=== PATIENT | male | born 1950 | race Caucasian/White ===

== ENCOUNTER 2017-03-15 08:16 | Outpatient (CLI) | payer MEDICARE, BC ==
[2017-03-15 09:21] LABS: ALT (SGPT) 29 U/L (0-55); AST (SGOT) 26 U/L (5-34); Albumin 3.8 g/dL (3.4-4.8); Alkaline Phosphatase 99 U/L (40-150); Anion Gap 11 mmol/L (10-20); BUN (Urea Nitrogen) 17 mg/dL (8.4-25.7); Calc. Creatinine Clearance 0 mL/min (70-130); Calcium 8.7 mg/dL (7.8-10.44); Carbon Dioxide 25 mmol/L (23-31); Cardiac Risk 3.9 (Less than 4.5); Chloride 112 mmol/L (98-107); Cholesterol 137 mg/dL (< 200 Desired); Estimated GFR-MDRD 84; Globulin 2.5 g/dL (2.4-3.5); Glucose 104 mg/dL (80-115); HDL Cholesterol 35 mg/dL (>60 Neg Risk); LDL Cholesterol, Calculated 79 mg/dL; Potassium 4.6 mmol/L (3.5-5.1); Protein, Total 6.3 g/dL (5.8-8.1); Sodium 143 mmol/L (136-145); Triglycerides 116 mg/dL (Less than 150)
[2017-03-15 09:23] LABS: #Basophils 0.1 thou/uL (0.0-0.2); #Eosinphils 0.3 thou/uL (0.0-0.7); #Lymphocytes 1.8 thou/uL (1.20-3.40); #Monocytes 0.8 thou/uL (0.11-0.59); #Neutrophils 5.3 thou/uL (1.40-6.50); %Basophils 1.4 % (0.0-1.0); %Eosinophils 3.9 % (0.0-10.0); %Lymphocytes 21.7 % (21.0-51.0); %Monocytes 9.9 % (0.0-10.0); %Neutrophils 63.1 % (42.0-75.0); Hemoglobin 14.6 g/dL (14.0-18.0); Mean Corpuscular HGB CONC 34.6 g/dL (32.0-36.0); Mean Corpuscular Volume 92.4 fl (80.0-94.0); Mean Platelet Volume 10.4 fL (7.4-10.4); Platelet Count 107 thou/uL (130-400); RBC Distribution Width 12.2 % (11.5-14.5); Red Blood Cell (RBC) Count 4.55 mill/uL (4.70-6.10); White Blood Cell (WBC) Count 8.4 thou/uL (4.8-10.8)
== END 2017-03-15 08:17 | disposition home or self-care (01) ==
LOC: BURLAB 08:16
PROVIDERS: ATTEND Family Medicine
DX: I25.10 Atherosclerotic heart disease of native coronary artery without angina pectoris (principal); D64.9 Anemia, unspecified; I10 Essential (primary) hypertension
CPT/HCPCS: 36415; 80053; 80061; 85025

== ENCOUNTER 2017-06-01 09:48 | Outpatient (CLI) | payer MEDICARE, BC ==
[2017-06-01 16:51] LABS: #Basophils 0.2 thou/uL (0.0-0.2); #Eosinphils 0.4 thou/uL (0.0-0.7); #Lymphocytes 1.6 thou/uL (1.20-3.40); #Monocytes 0.7 thou/uL (0.11-0.59); #Neutrophils 4.1 thou/uL (1.40-6.50); %Basophils 2.3 % (0.0-1.0); %Eosinophils 5.5 % (0.0-10.0); %Lymphocytes 23.1 % (21.0-51.0); %Monocytes 10.5 % (0.0-10.0); %Neutrophils 58.6 % (42.0-75.0); Hemoglobin 13.6 g/dL (14.0-18.0); Mean Corpuscular HGB CONC 35.7 g/dL (32.0-36.0); Mean Corpuscular Hemoglobin 32.6 pg (27.0-31.0); Mean Corpuscular Volume 91.5 fl (80.0-94.0); Mean Platelet Volume 9.9 fL (7.4-10.4); PLT Morphology Comment HX OF LOW PLATELET COUNT; Platelet Count 103 thou/uL (130-400); RBC Distribution Width 12.5 % (11.5-14.5); Red Blood Cell (RBC) Count 4.15 mill/uL (4.70-6.10); White Blood Cell (WBC) Count 6.9 thou/uL (4.8-10.8)
[2017-06-01 17:20] LABS: PSA-Asymptomatic (SCREENING) 0.24 ng/mL (0-4.0)
[2017-06-01 17:44] LABS: MDiff Complete? YES; Manual Diff?? NO
[2017-06-01 17:58] LABS: Hep C IgG Ab Non-Reactive (NonReactive); Hep C Index 0.14 S/CO (0-0.79)
== END 2017-06-01 09:49 | disposition home or self-care (01) ==
LOC: LABLEX 09:48
PROVIDERS: ATTEND Family Medicine
DX: Z12.5 Encounter for screening for malignant neoplasm of prostate (principal); D69.6 Thrombocytopenia, unspecified; Z72.89 Other problems related to lifestyle
CPT/HCPCS: 85025; 86803; G0103

== ENCOUNTER 2017-07-10 10:11 | Emergency (ER) | payer MEDICARE, BC ==
[2017-07-10 10:52] LABS: Anion Gap 15 mmol/L (10-20); BUN (Urea Nitrogen) 18 mg/dL (8.4-25.7); Calc. Creatinine Clearance 0 mL/min (70-130); Calcium 8.9 mg/dL (7.8-10.44); Carbon Dioxide 22 mmol/L (23-31); Chloride 107 mmol/L (98-107); Estimated GFR-MDRD 90; Glucose 105 mg/dL (80-115); Potassium 4.6 mmol/L (3.5-5.1); Sodium 139 mmol/L (136-145); Uric Acid 8.9 mg/dL (3.5-7.2)
[2017-07-10 10:57] LABS: #Basophils 0.2 thou/uL (0.0-0.2); #Eosinphils 0.4 thou/uL (0.0-0.7); #Lymphocytes 1.7 thou/uL (1.20-3.40); #Monocytes 0.9 thou/uL (0.11-0.59); #Neutrophils 5.2 thou/uL (1.40-6.50); %Basophils 2.1 % (0.0-1.0); %Eosinophils 4.5 % (0.0-10.0); %Lymphocytes 20.4 % (21.0-51.0); %Monocytes 10.3 % (0.0-10.0); %Neutrophils 62.8 % (42.0-75.0); Hemoglobin 14.5 g/dL (14.0-18.0); Mean Corpuscular HGB CONC 35.9 g/dL (32.0-36.0); Mean Corpuscular Hemoglobin 32.2 pg (27.0-31.0); Mean Corpuscular Volume 89.6 fl (80.0-94.0); Mean Platelet Volume 9.3 fL (7.4-10.4); PLT Morphology Comment BLOOD SMEAR ESTIMATE CONFIRMS LOW PLATELET COUNT; Platelet Count 119 thou/uL (130-400); RBC Distribution Width 12.1 % (11.5-14.5); Red Blood Cell (RBC) Count 4.51 mill/uL (4.70-6.10); White Blood Cell (WBC) Count 8.3 thou/uL (4.8-10.8)
[2017-07-10 11:00] LABS: MDiff Complete? YES
--- NOTE | 2017-07-10 11:08 | RAD ---
RIGHT ANKLE 3 VIEWS: HISTORY: Right ankle pain. FINDINGS/IMPRESSION: No fracture, dislocation, or bony destruction is seen. The ankle mortise is maintained. There are calcaneal spurs. POS: TONY
[2017-07-10] MEDS ORDERED: traMADol HCl 50 MG TAB ONE (11:28)
== END 2017-07-10 11:35 | disposition home or self-care (01) ==
LOC: BURERS 10:11
DX: M10.9 Gout, unspecified (principal); I11.0 Hypertensive heart disease with heart failure; I50.9 Heart failure, unspecified; E78.5 Hyperlipidemia, unspecified; Z87.891 Personal history of nicotine dependence
CPT/HCPCS: 80048; 84550; 85025

== ENCOUNTER 2017-07-17 17:28 | Emergency (ER) | payer MEDICARE, BC ==
[2017-07-17] MEDS ORDERED: Adacel (T-DAP) 0.5 ML VIAL ONE (19:12)
[2017-07-17] MEDS ORDERED: Cephalexin 250 MG CAP ONE (20:29)
== END 2017-07-17 20:30 | disposition home or self-care (01) ==
LOC: BURERS 17:28
DX: L02.414 Cutaneous abscess of left upper limb (principal); I11.0 Hypertensive heart disease with heart failure; I50.9 Heart failure, unspecified; E78.5 Hyperlipidemia, unspecified; Z87.891 Personal history of nicotine dependence; Z79.82 Long term (current) use of aspirin; Z79.899 Other long term (current) drug therapy
CPT/HCPCS: 10060; 90471; 90715

== ENCOUNTER 2017-07-19 09:59 | Inpatient (IN) | payer MEDICARE, BC ==
[2017-07-19 10:46] LABS: #Basophils 0.1 thou/uL (0.0-0.2); #Eosinphils 0.2 thou/uL (0.0-0.7); #Lymphocytes 0.9 thou/uL (1.20-3.40); #Neutrophils 5.7 thou/uL (1.40-6.50); %Basophils 1.1 % (0.0-1.0); %Eosinophils 2.1 % (0.0-10.0); %Lymphocytes 11.3 % (21.0-51.0); %Monocytes 12.3 % (0.0-10.0); %Neutrophils 73.2 % (42.0-75.0); Mean Corpuscular HGB CONC 35.1 g/dL (32.0-36.0); Mean Corpuscular Hemoglobin 32.3 pg (27.0-31.0); Mean Corpuscular Volume 91.9 fl (80.0-94.0); Mean Platelet Volume 9.6 fL (7.4-10.4); Platelet Count 120 thou/uL (130-400); RBC Distribution Width 11.6 % (11.5-14.5); Red Blood Cell (RBC) Count 4.32 mill/uL (4.70-6.10); White Blood Cell (WBC) Count 7.7 thou/uL (4.8-10.8)
[2017-07-19] MEDS ORDERED: Piperacillin/Tazobactam 3.375 GM VIAL ONE (11:30)
[2017-07-19] MEDS ORDERED: Sodium Chloride 0.9% 100 ML ONE (11:30)
[2017-07-19 11:48] LABS: ALT (SGPT) 22 U/L (8-55); AST (SGOT) 24 U/L (5-34); Albumin 3.5 g/dL (3.4-4.8); Alkaline Phosphatase 99 U/L (40-150); Anion Gap 16 mmol/L (10-20); BUN (Urea Nitrogen) 18 mg/dL (8.4-25.7); Bilirubin, Total 0.5 mg/dL (0.2-1.2); Calc. Creatinine Clearance 0 mL/min (70-130); Calcium 8.6 mg/dL (7.8-10.44); Carbon Dioxide 19 mmol/L (23-31); Chloride 103 mmol/L (98-107); Estimated GFR-MDRD 90; Globulin 3.2 g/dL (2.4-3.5); Glucose 105 mg/dL (80-115); Potassium 4.4 mmol/L (3.5-5.1); Protein, Total 6.7 g/dL (5.8-8.1); Sodium 134 mmol/L (136-145)
[2017-07-19 12:43] LABS: Bilirubin Negative (Negative); Blood, Urine Negative (Negative); Clarity Clear (Clear); Glucose, Urine (Dipstick) Negative (Negative); Leukocyte Negative (Negative); Nitrite Negative (Negative); Protein, Urine (Dipstick) Negative (Neg-Trace)
[2017-07-19 14:21] VITALS: BMI 35.5
[2017-07-19] MEDS ORDERED: Acetaminophen 325 MG TAB PO PRN (14:42)
[2017-07-19] MEDS ORDERED: Ondansetron ODT 4 MG TAB SL PRN (14:42)
[2017-07-19] MEDS ORDERED: Ondansetron HCl/PF 4 MG/2 ML Vial IVP PRN (14:42)
[2017-07-19] MEDS: Vancomycin HCl 1 GM in Sodium Chloride 0.9% 250 ML 250 ML IVPB SCH (15:09)
[2017-07-19] MEDS ORDERED: traMADol HCl 50 MG TAB PO PRN (17:11)
[2017-07-19] MEDS: Enoxaparin Sodium 30 MG/0.3 ML SYRINGE SC SCH (17:54)
[2017-07-19] MEDS: Piperacillin/Tazobactam 3.375 GM in Sodium Chloride 0.9% 100 ML IVPB SCH (20:15)
[2017-07-19] MEDS: Famotidine 20 MG TAB PO SCH (20:16)
[2017-07-19] MEDS: Aspirin 325 MG TAB PO SCH (20:16)
[2017-07-19] MEDS: Atorvastatin Calcium 40 MG TAB PO SCH (20:16)
--- NOTE | 2017-07-19 20:57 | RAD ---
CHEST TWO VIEWS 07/19/17 Comparison is made with a 04/14/16 study. Median sternotomy sutures are seen as before. The heart is normal in size and the lungs are clear. T here is no current sign of pneumonia or pleural effusion. The trachea is midline. IMPRESSION: No acute thoracic findings. POS: HOME
[2017-07-19] MEDS: Acetaminophen 325 MG TAB PO SCH (21:51)
--- NOTE | 2017-07-19 23:37 | HP ---
DATE OF ADMISSION: 07/19/2017 CHIEF COMPLAINT: Left hand cellulitis. HISTORY OF PRESENT ILLNESS: A 67-year-old male patient of Dr. Cody presented to the [facility] earlier today with worsening symptoms to a distal left upper extremity including swelling and erythema with accompanying nausea, vomiting. He had been seen 2 days prior for incision and drainage of suspected and infected sebaceous cyst and sent home with a course of Keflex. The patient states he initially felt better the next day; however, later that evening began to experience subjective warmth accompanied with nausea , which progressed during the night to an episode of emesis. When awakening earlier today, he noticed that his swelling had progressed along with erythema extending from the site of infection and to now include his left hand. He thus presented to [facility], where he was evaluated further, and deemed to have failed outpatient antibiotics and was subsequently started on IV antibiotics including vancomycin and Zosyn. He was provided some intravenous fluids due to limited intake over the last half to full day. Labs are otherwise fairly stable. No leukocytosis and stable metabolic profile; however , as stated he will be admitted for further IV antibiotic therapy and followup of his obtained cultures. PAST MEDICAL HISTORY: Includes hypertension, hyperlipidemia, coronary artery disease, and congestive heart failure. PAST SURGICAL HISTORY: Cholecystectomy, lumbar spinal surgery, and bypass 1 vessel. SOCIAL HISTORY: Nonsmoker, nondrinker. . FAMILY HISTORY: Noncontributory. ALLERGIES: No known drug allergies. CURRENT MEDICATIONS: Ascorbic acid 1000 mg p.o. daily, Coreg 6.25 mg p.o. b.i.d., docusate sodium 100 mg p.o. daily p.r.n., daily multivitamin, B complex vitamin 150 mg p.o. daily, aspirin 325 mg p.o. b.i.d., atorvastatin 80 mg p.o. at bedtime, lisinopril 5 mg p.o. daily, diclofenac, and tramadol 50 mg p.o. p.r.n. REVIEW OF SYSTEMS: General: The patient complains of subjective warmth and chills. Ear, Nose, and Throat: Denies sore throat, nasal drainage or congestion. Cardiovascular: Denies chest pain or palpitations. Respiratory: Denies shortness of breath or cough. Gastrointestinal: Complains of nausea and vomiting. Denies diarrhea or constipation. Denies abdominal pain. Genitourinary: Denies dysuria. Musculoskeletal: He complains of swelling over his left hand. Dermatologic: Complains of redness, erythema to the distal left upper extremity. Neurologic: Denies headache. LABORATORY DATA: White blood cell count 7.7, H and H is 14 and 39.8, platelets are 120. Chemistry: Sodium is 134, potassium is 4.4. BUN 18, creatinine 0.85 , GFR is 90, lactic acid 0.9. LFTs are normal. Urinalysis showed no bacteria. Chest x-ray was obtained and has no pressure read at that time. PHYSICAL EXAMINATION: VITAL SIGNS: Temperature is 98.2, pulse is 72, respiratory rate is 16, oxygen is 97% on room air, blood pressure is 143/63. GENERAL: Alert and oriented, in no acute distress. He is overweight. HEAD, EARS, NOSE, AND THROAT: Pupils are equal, round, reactive. Extraocular muscles are intact. Throat, no erythema. Moist mucous membranes. NECK: Supple, no lymphadenopathy, no meningeal signs. LUNGS: Clear to auscultation bilaterally. No wheezing, rales or rhonchi. CARDIOVASCULAR: Normal S1, S2. A 2/6 murmur, regular rate and rhythm. ABDOMEN: Soft, nontender to palpation. No rebound or guarding, normal bowel sounds. EXTREMITIES: No clubbing or cyanosis. Trace edema. SKIN: He has approximately 1 x 1 cm open lesions to the distal dorsolateral left forearm with surrounding erythema, there is swelling of the left hand with faint erythema dorsally. NEUROLOGICAL: Nonfocal. Cranial nerves II through XII are grossly intact. ASSESSMENT AND PLAN: 1. Left hand cellulitis, with suspected and infected sebaceous cyst. We will continue vancomycin and Zosyn with vancomycin to be followed as far as trough and peak per protocol. We will follow up CBC and CMP in the morning. There are blood cultures obtained that will be followed up and Tylenol for fever p.r.n. 2. Nausea, vomiting. Zofran p.r.n. He has been on a clear liquid diet thus far and we will advance to heart healthy diet as tolerated. 3. Hypertension. The patient is hemodynamically stable. Blood pressure at goal, we will continue his home medications. 4. Hyperlipidemia. We will continue home statin. 5. Coronary artery disease. Again, we will resume his home medications. 6. Prophylaxis. We will provide Lovenox and H2 anthony MTDD
[2017-07-20] MEDS: Vancomycin HCl 1 GM in Sodium Chloride 0.9% 250 ML 250 ML IVPB SCH ×2 (02:21→15:24)
[2017-07-20] MEDS: Piperacillin/Tazobactam 3.375 GM in Sodium Chloride 0.9% 100 ML IVPB SCH ×3 (04:14→20:51)
[2017-07-20 06:56] LABS: ALT (SGPT) 27 U/L (8-55); AST (SGOT) 24 U/L (5-34); Albumin 3.2 g/dL (3.4-4.8); Alkaline Phosphatase 80 U/L (40-150); Anion Gap 14 mmol/L (10-20); BUN (Urea Nitrogen) 12 mg/dL (8.4-25.7); Bilirubin, Total 1.5 mg/dL (0.2-1.2); Calc. Creatinine Clearance 132 mL/min (70-130); Calcium 8.5 mg/dL (7.8-10.44); Carbon Dioxide 22 mmol/L (23-31); Chloride 107 mmol/L (98-107); Estimated GFR-MDRD Greater than 90; Globulin 2.9 g/dL (2.4-3.5); Glucose 94 mg/dL (80-115); Potassium 4.4 mmol/L (3.5-5.1); Protein, Total 6.1 g/dL (5.8-8.1); Sodium 139 mmol/L (136-145)
[2017-07-20 08:01] LABS: Hemoglobin 13.3 g/dL (14.0-18.0); Mean Corpuscular HGB CONC 34.8 g/dL (32.0-36.0); Mean Corpuscular Hemoglobin 32.2 pg (27.0-31.0); Mean Corpuscular Volume 92.4 fl (80.0-94.0); Mean Platelet Volume 9.1 fL (7.4-10.4); Platelet Count 111 thou/uL (130-400); RBC Distribution Width 11.6 % (11.5-14.5); Red Blood Cell (RBC) Count 4.13 mill/uL (4.70-6.10); White Blood Cell (WBC) Count 7.8 thou/uL (4.8-10.8)
[2017-07-20] MEDS: Aspirin 325 MG TAB PO SCH ×2 (08:52→20:55)
[2017-07-20] MEDS: Multivitamin W/ Minerals 1 TAB PO SCH (08:53)
[2017-07-20] MEDS: Ascorbic Acid 500 mg Chewable Tablet PO SCH (08:53)
[2017-07-20] MEDS: Acetaminophen 325 MG TAB PO SCH ×2 (08:53→20:55)
[2017-07-20] MEDS: Carvedilol 3.125 MG TAB PO SCH ×2 (08:53→18:03)
[2017-07-20] MEDS: Fish Oil 1,000 MG CAP PO SCH ×2 (08:53→20:55)
[2017-07-20] MEDS: Lisinopril 5 MG TAB PO SCH (08:54)
[2017-07-20] MEDS: Famotidine 20 MG TAB PO SCH ×2 (08:54→20:56)
[2017-07-20] MEDS: Docusate 100 MG CAP PO SCH (08:54)
[2017-07-20] MEDS: Stress 600 With Zinc 1 TAB PO SCH (08:54)
[2017-07-20 09:54] LABS: Band 1 % (5-11); Eosinophils 3 % (0-10); Lymphocytes 19 % (21-51); Monocytes 10 % (0-10); Neutrophil 67 % (42-75)
[2017-07-20 10:04] LABS: MDiff Complete? YES
[2017-07-20] MEDS: Enoxaparin Sodium 30 MG/0.3 ML SYRINGE SC SCH (18:04)
[2017-07-20] MEDS: Atorvastatin Calcium 40 MG TAB PO SCH (20:55)
[2017-07-21] MEDS: Vancomycin HCl 1 GM in Sodium Chloride 0.9% 250 ML 250 ML IVPB SCH (02:57)
[2017-07-21] MEDS: Piperacillin/Tazobactam 3.375 GM in Sodium Chloride 0.9% 100 ML IVPB SCH ×3 (03:58→20:32)
[2017-07-21] MEDS: Stress 600 With Zinc 1 TAB PO SCH (08:52)
[2017-07-21] MEDS: Aspirin 325 MG TAB PO SCH ×2 (08:52→21:45)
[2017-07-21] MEDS: Carvedilol 3.125 MG TAB PO SCH ×2 (08:52→18:26)
[2017-07-21] MEDS: Fish Oil 1,000 MG CAP PO SCH ×2 (08:53→21:44)
[2017-07-21] MEDS: Ascorbic Acid 500 mg Chewable Tablet PO SCH (08:53)
[2017-07-21] MEDS: Lisinopril 5 MG TAB PO SCH (08:53)
[2017-07-21] MEDS: Multivitamin W/ Minerals 1 TAB PO SCH (08:57)
[2017-07-21] MEDS: Acetaminophen 325 MG TAB PO SCH ×2 (08:57→21:44)
[2017-07-21] MEDS: Docusate 100 MG CAP PO SCH (08:57)
[2017-07-21] MEDS: Famotidine 20 MG TAB PO SCH ×2 (08:59→21:45)
[2017-07-21] MEDS ORDERED: Vancomycin HCl 1.5 GM in Sodium Chloride 0.9% 250 ML 250 ML IVPB SCH (15:00)
[2017-07-21] MEDS: Enoxaparin Sodium 30 MG/0.3 ML SYRINGE SC SCH (18:26)
[2017-07-21] MEDS: Atorvastatin Calcium 40 MG TAB PO SCH (21:44)
[2017-07-22] MEDS ORDERED: Vancomycin HCl 500 MG in Sodium Chloride 0.9% 100 ML IVPB SCH (03:00)
[2017-07-22] MEDS ORDERED: Vancomycin HCl 1 GM in Sodium Chloride 0.9% 250 ML 250 ML IVPB SCH (03:00)
[2017-07-22] MEDS ORDERED: Vancomycin HCl 500 MG VIAL ONE (04:06)
[2017-07-22] MEDS ORDERED: Piperacillin/Tazobactam 3.375 GM in Sodium Chloride 0.9% 100 ML IVPB SCH (06:00)
[2017-07-22 06:18] VITALS: TEMP 98.2
[2017-07-22] MEDS: Carvedilol 3.125 MG TAB PO SCH (09:05)
[2017-07-22] MEDS: Ascorbic Acid 500 mg Chewable Tablet PO SCH (09:06)
[2017-07-22] MEDS: Acetaminophen 325 MG TAB PO SCH (09:06)
[2017-07-22] MEDS: Multivitamin W/ Minerals 1 TAB PO SCH (09:07)
[2017-07-22] MEDS: Lisinopril 5 MG TAB PO SCH (09:07)
[2017-07-22] MEDS: Aspirin 325 MG TAB PO SCH (09:07)
[2017-07-22] MEDS: Stress 600 With Zinc 1 TAB PO SCH (09:08)
[2017-07-22] MEDS: Docusate 100 MG CAP PO SCH (09:08)
[2017-07-22] MEDS: Famotidine 20 MG TAB PO SCH (09:08)
[2017-07-22] MEDS: Fish Oil 1,000 MG CAP PO SCH (09:08)
[2017-07-22 12:09] VITALS: BP 148/65
[2017-07-22] MEDS ORDERED: Vancomycin HCl 750 MG in Sodium Chloride 0.9% 250 ML 250 ML IVPB SCH ×4 (15:00)
--- NOTE | 2017-07-22 18:05 | DIS ---
DATE OF ADMISSION: 07/19/2017 DATE OF DISCHARGE: 07/22/2017 ADMISSION DIAGNOSES: Cellulitis of the left hand, infected sebaceous cyst, nausea, vomiting, hypertension, hyperlipidemia, coronary artery disease. DISCHARGE DIAGNOSES: Cellulitis of the left hand, infected sebaceous cyst, hypertension, hyperlipidemia, coronary artery disease with resolution of the nausea and vomiting and noted improvement of cellulitis. PROCEDURES: None. HOSPITAL COURSE: A 67-year-old male presented to [facility] , status post failed outpatient antibiotic therapy with Keflex for a suspected infected sebaceous cyst to the distal dorsal left forearm that progressed into a cellulitis involving the left hand; he had a notable incision and drainage of this area a couple days prior to his admission. The patient was admitted for IV antibiotic therapy, which included vancomycin and Zosyn, and cultures were obtained. Blood cultures showed no growth and a wound culture did end up growing methicillin-resistant Staph aureus. His cellulitis is cleared from the left hand with the aforementioned IV antibiotics; however, he does have a remaining ulcerative lesion site to the left forearm; however, this area has steadily improved during his admission. The wound still has purulence draining from it; however, the erythema surrounding it has largely subsided. The patient 's nausea and vomiting resolved and his intake improved to his baseline. His mild hyponatremia corrected in accordance with this. Throughout his stay, he had no leukocytosis. He did spike a fever early in his admission; however, has remained afebrile for the last 48 hours and notably feels much improved. He will be discharged at this time to his home setting and treated in accordance with the wound culture with a 1-week course of Levaquin. DISPOSITION: The patient will be discharged home and may follow up with myself in clinic within a week. He is normally a patient of Dr. Jean, who has recently relocated, so he can certainly follow up with replacement there, who is Physician [employer] Matt if need be. DISCHARGE MEDICATIONS: One new medication include Levaquin 500 mg p.o. daily x7 days, can resume his usual medications which include ascorbic acid 1000 mg p.o. daily, Coreg 6.25 mg p.o. b.i.d., docusate sodium 100 mg p.o. daily p.r.n. , multivitamin, B complex vitamin 150 mg p.o. daily, aspirin 325 mg p.o., atorvastatin 80 mg p.o. at bedtime, lisinopril 5 mg p.o. daily, diclofenac p.r.n., tramadol 50 mg p.o. p.r.n. MTDD
== END 2017-07-22 10:08 | disposition home or self-care (01) | DRG 603 ==
LOC: BURERS 09:59 → BURMED 13:35
PROVIDERS: ADMIT Family Medicine; ATTEND Family Medicine
DX: L03.114 Cellulitis of left upper limb (principal); E87.1 Hypo-osmolality and hyponatremia; I10 Essential (primary) hypertension; L72.3 Sebaceous cyst; R11.2 Nausea with vomiting, unspecified; E78.5 Hyperlipidemia, unspecified; I25.10 Atherosclerotic heart disease of native coronary artery without angina pectoris; B95.62 Methicillin resistant Staphylococcus aureus infection as the cause of diseases classified elsewhere
CPT/HCPCS: 10060; 36415; 71020; 80053; 80202; 81003; 83605; 85025; 87040; 87070; 87077; 87186; 87205; 90471; 90715; 96361; 96365; A4216; J1650; J2543; J3370; J7050

== ENCOUNTER 2018-06-19 18:00 | Emergency (ER) | payer MEDICARE, BC ==
[2018-06-19 19:53] LABS: ALT (SGPT) 30 U/L (8-55); AST (SGOT) 24 U/L (5-34); Albumin 3.7 g/dL (3.4-4.8); Alkaline Phosphatase 86 U/L (40-150); Anion Gap 15 mmol/L (10-20); BUN (Urea Nitrogen) 13 mg/dL (8.4-25.7); Bilirubin, Total 2.4 mg/dL (0.2-1.2); Calc. Creatinine Clearance 0 mL/min (70-130); Calcium 9.3 mg/dL (7.8-10.44); Carbon Dioxide 22 mmol/L (23-31); Chloride 100 mmol/L (98-107); Estimated GFR-MDRD 79; Globulin 3.3 g/dL (2.4-3.5); Glucose 110 mg/dL (80-115); Potassium 4.4 mmol/L (3.5-5.1); Sodium 133 mmol/L (136-145)
[2018-06-19 19:54] LABS: CKMB 1.5 ng/mL (0-6.6); Troponin I 0.048 ng/mL (< 0.028)
[2018-06-19 19:56] LABS: #Basophils 0.1 thou/uL (0.0-0.2); #Eosinphils 0.2 thou/uL (0.0-0.7); #Lymphocytes 1.7 thou/uL (1.20-3.40); #Monocytes 1.6 thou/uL (0.11-0.59); #Neutrophils 11.9 thou/uL (1.40-6.50); %Basophils 0.8 % (0.0-1.0); %Eosinophils 1.1 % (0.0-10.0); %Lymphocytes 10.7 % (21.0-51.0); %Monocytes 10.4 % (0.0-10.0); Eosinophils 2 % (0-10); Hemoglobin 13.8 g/dL (14.0-18.0); Lymphocytes 5 % (21-51); MDiff Complete? YES; Mean Corpuscular Hemoglobin 30.3 pg (27.0-31.0); Mean Platelet Volume 8.3 fL (7.4-10.4); Monocytes 13 % (0-10); Neutrophil 77 % (42-75); Platelet Count 129 thou/uL (130-400); RBC Distribution Width 11.4 % (11.5-14.5); Reactive Lymphocytes 2 % (0-10); Red Blood Cell (RBC) Count 4.54 mill/uL (4.70-6.10); White Blood Cell (WBC) Count 15.4 thou/uL (4.8-10.8)
[2018-06-19 20:27] LABS: Bilirubin Negative (Negative); Blood, Urine Negative (Negative); Clarity Clear (Clear); Glucose, Urine (Dipstick) Negative (Negative); Leukocyte Negative (Negative); Nitrite Negative (Negative); Protein, Urine (Dipstick) Negative (Neg-Trace); Specific Gravity, Urine 1.015 (1.005-1.030); pH, Urine 6.5 (5.0-9.0)
--- NOTE | 2018-06-20 00:43 | RAD ---
AP PORTABLE CHEST: 06/19/2018 1915 HOURS COMPARISON: 07/19/2017 FINDINGS: The heart is borderline in size. There are no congestive findings, pleural effusions, or focal pulmo nary infiltrates. Indistinctness of the left heart border may be more due to the fact that the patie nt is turned slightly on this portable film. IMPRESSION: No definite acute finding. POS: HOME
== END 2018-06-19 21:03 | disposition short-term general hospital (02) ==
LOC: BURERS 18:00
DX: K52.9 Noninfective gastroenteritis and colitis, unspecified (principal); R79.89 Other specified abnormal findings of blood chemistry; I11.0 Hypertensive heart disease with heart failure; I50.9 Heart failure, unspecified; E78.5 Hyperlipidemia, unspecified; Z87.891 Personal history of nicotine dependence
CPT/HCPCS: 51701; 71045; 80053; 81003; 82553; 83605; 83690; 84484; 85025; 93005

== ENCOUNTER 2018-08-19 09:50 | Emergency (ER) | payer MEDICARE, BC ==
[2018-08-19] MEDS ORDERED: Triamcinolone 40 MG/ML VIAL ONE (10:14)
== END 2018-08-19 10:42 | disposition home or self-care (01) ==
LOC: BURERS 09:50
DX: M75.102 Unspecified rotator cuff tear or rupture of left shoulder, not specified as traumatic (principal); I11.0 Hypertensive heart disease with heart failure; I50.9 Heart failure, unspecified; E78.5 Hyperlipidemia, unspecified; Z87.891 Personal history of nicotine dependence; Z79.899 Other long term (current) drug therapy; Z79.82 Long term (current) use of aspirin
CPT/HCPCS: 20552; J3301

== ENCOUNTER 2019-02-08 09:49 | Emergency (ER) | payer MEDICARE, BC | END 2019-02-08 10:50 | disposition home or self-care (01) | LOC: BURERS 09:49 | DX: J10.1 Influenza due to other identified influenza virus with other respiratory manifestations (principal); I11.0 Hypertensive heart disease with heart failure; I50.9 Heart failure, unspecified; Z87.891 Personal history of nicotine dependence | CPT/HCPCS: 87804; 99283 ==

== ENCOUNTER 2019-04-30 02:36 | Emergency (ER) | payer MEDICARE, BC ==
[2019-04-30] MEDS ORDERED: Lidocaine 1% PF 5 ML VIAL ONE (02:56)
[2019-04-30] MEDS ORDERED: Ondansetron ODT 4 MG TAB ONE (02:56)
[2019-04-30 03:30] LABS: ALT (SGPT) 25 U/L (8-55); AST (SGOT) 25 U/L (5-34); Albumin 3.6 g/dL (3.4-4.8); Alkaline Phosphatase 87 U/L (40-150); Anion Gap 13 mmol/L (10-20); BUN (Urea Nitrogen) 16 mg/dL (8.4-25.7); Bilirubin, Total 1.5 mg/dL (0.2-1.2); Calc. Creatinine Clearance 0 mL/min (70-130); Calcium 8.5 mg/dL (7.8-10.44); Carbon Dioxide 19 mmol/L (23-31); Chloride 101 mmol/L (98-107); Estimated GFR-MDRD Greater than 90; Globulin 2.8 g/dL (2.4-3.5); Glucose 98 mg/dL (80-115); Protein, Total 6.4 g/dL (5.8-8.1); Sodium 129 mmol/L (136-145)
[2019-04-30 03:32] LABS: Hemoglobin 13.7 g/dL (14.0-18.0); Mean Corpuscular Hemoglobin 30.5 pg (27.0-31.0); Mean Corpuscular Volume 89.5 fL (78.0-98.0); Mean Platelet Volume 9.9 fL (7.4-10.4); Platelet Count 99 thou/uL (130-400); Red Blood Cell (RBC) Count 4.49 mill/uL (4.70-6.10); White Blood Cell (WBC) Count 8.4 thou/uL (4.8-10.8)
[2019-04-30 03:33] LABS: Eosinophils 1 % (0-10); Lymphocytes 16 % (21-51); MDiff Complete? YES; Monocytes 13 % (0-10); Neutrophil 69 % (42-75); Platelet Morphology Comment Appears Decreased; RBC Morphology Normal
[2019-04-30 03:49] LABS: CKMB 1.7 ng/mL (0-6.6)
[2019-04-30] MEDS ORDERED: Aspirin Chewable 81 MG TAB ONE (03:53)
--- NOTE | 2019-04-30 07:32 | RAD ---
CHEST 1 VIEW: INDICATION: Near syncopal episode. COMPARISON: Prior exam dated 06/19/2018. FINDINGS: There is stable cardiomegaly and post CABG change. Lungs are clear. No definite pleural effusion or pneumothorax is evident. IMPRESSION: No acute abnormality. POS: BH
== END 2019-04-30 04:17 | disposition home or self-care (01) ==
LOC: BURERS 02:36
DX: S91.114A Laceration without foreign body of right lesser toe(s) without damage to nail, initial encounter (principal); R55 Syncope and collapse; I11.0 Hypertensive heart disease with heart failure; I50.9 Heart failure, unspecified; R79.89 Other specified abnormal findings of blood chemistry; I25.10 Atherosclerotic heart disease of native coronary artery without angina pectoris; E78.5 Hyperlipidemia, unspecified; Z87.891 Personal history of nicotine dependence; I25.2 Old myocardial infarction; Z79.899 Other long term (current) drug therapy; Z79.82 Long term (current) use of aspirin; W19.XXXA Unspecified fall, initial encounter
CPT/HCPCS: 12001; 36415; 71045; 80053; 82553; 83880; 84484; 85025; 93005; 96374; J2001; Q0162

== ENCOUNTER 2019-05-15 19:30 | Emergency (ER) | payer MEDICARE, BC ==
[2019-05-15 19:55] LABS: #Basophils 0.2 thou/uL (0.0-0.2); #Eosinphils 0.1 thou/uL (0.0-0.7); #Lymphocytes 1.4 thou/uL (1.20-3.40); #Monocytes 1.3 thou/uL (0.11-0.59); #Neutrophils 10.1 thou/uL (1.40-6.50); %Basophils 1.6 % (0.0-1.0); %Eosinophils 1.1 % (0.0-10.0); %Lymphocytes 10.7 % (21.0-51.0); %Monocytes 9.9 % (0.0-10.0); %Neutrophils 76.8 % (42.0-75.0); Hemoglobin 14.3 g/dL (14.0-18.0); Mean Corpuscular HGB CONC 33.5 g/dL (32.0-36.0); Mean Corpuscular Hemoglobin 30.3 pg (27.0-31.0); Mean Corpuscular Volume 90.3 fL (78.0-98.0); Mean Platelet Volume 9.4 fL (7.4-10.4); Platelet Count 188 thou/uL (130-400); RBC Distribution Width 11.6 % (11.5-14.5); Red Blood Cell (RBC) Count 4.72 mill/uL (4.70-6.10); White Blood Cell (WBC) Count 13.2 thou/uL (4.8-10.8)
[2019-05-15] MEDS ORDERED: Lidocaine 1% PF 5 ML VIAL ONE (19:59)
[2019-05-15 20:08] LABS: ALT (SGPT) 30 U/L (8-55); AST (SGOT) 30 U/L (5-34); Albumin 4.1 g/dL (3.4-4.8); Alkaline Phosphatase 88 U/L (40-150); Anion Gap 19 mmol/L (10-20); BUN (Urea Nitrogen) 26 mg/dL (8.4-25.7); Bilirubin, Total 1.6 mg/dL (0.2-1.2); CK (CPK) 44 U/L (30-200); Calc. Creatinine Clearance 0 mL/min (70-130); Calcium 9.3 mg/dL (7.8-10.44); Carbon Dioxide 18 mmol/L (23-31); Chloride 99 mmol/L (98-107); Estimated GFR-MDRD 68; Globulin 3.8 g/dL (2.4-3.5); Glucose 123 mg/dL (80-115); Potassium 4.9 mmol/L (3.5-5.1); Protein, Total 7.9 g/dL (5.8-8.1); Sodium 131 mmol/L (136-145)
[2019-05-15 20:28] LABS: CKMB 1.1 ng/mL (0-6.6)
[2019-05-15 20:58] LABS: Bilirubin Negative (Negative); Blood, Urine Negative (Negative); Clarity Clear (Clear); Glucose, Urine (Dipstick) Negative (Negative); Leukocyte Negative (Negative); Nitrite Negative (Negative); Protein, Urine (Dipstick) Negative (Neg-Trace); Urobilinogen 0.2 mg/dL (0.2-1.0)
--- NOTE | 2019-05-15 21:30 | RAD ---
PORTABLE CHEST 05/15/19 An AP portable film at 1956 is compared with a 04/30/19 study. The heart size is unchanged. There is no congestion, pleural effusion, or acute pulmonary infiltrate. The right hilum is slightly more prominent than the left but probably due to the patient being turne d to the side slightly. Median sternotomy sutures are present from prior surgery. IMPRESSION: No acute thoracic findings. POS: HOME
--- NOTE | 2019-05-15 21:32 | RAD ---
RIGHT FOOT TWO VIEWS: 05/15/19 I understand there is an open wound at the small toe. No area of bony destruction was seen. No fractu re was apparent. The views are insufficient to see all of the foot well. There are no gross acute bon y findings in the area as visualized. IMPRESSION: No acute findings. POS: HOME
--- NOTE | 2019-05-15 21:34 | CT ---
CT OF THE BRAIN WITHOUT CONTRAST: 05/15/19 Comparison is made with an MRI dated 06/08/18. No intracranial bleeding or extra-axial hematoma was seen. The ventricles are normal in size. There i s no sign of mass, edema, or stroke. The skull appears intact. The visible paranasal sinuses are clear, as are the mastoids air cells. Th ere may be some minor thickening in some of the ethmoid sinuses. IMPRESSION: No acute intracranial findings. POS: HOME
[2019-05-15 23:12] LABS: Troponin I 0.041 ng/mL (< 0.028)
== END 2019-05-15 23:28 | disposition home or self-care (01) ==
LOC: BURERS 19:30
DX: R53.1 Weakness (principal); I25.10 Atherosclerotic heart disease of native coronary artery without angina pectoris; I11.0 Hypertensive heart disease with heart failure; I50.9 Heart failure, unspecified; E78.00 Pure hypercholesterolemia, unspecified; Z87.891 Personal history of nicotine dependence; Z79.899 Other long term (current) drug therapy; Z79.82 Long term (current) use of aspirin
CPT/HCPCS: 12002; 36416; 51701; 70450; 71045; 80053; 81003; 82550; 82553; 83605; 83880; 84443; 84484; 85025; 87040; 87086; 87149; 93005; 96360; 36415-59; J2001

== ENCOUNTER 2019-05-29 17:20 | Inpatient (IN) | payer MEDICARE, BC ==
[2019-05-29] MEDS ORDERED: Docusate 100 MG CAP PO PRN (19:08)
[2019-05-29] MEDS ORDERED: Fish Oil 1,000 MG CAP PO SCH (21:00)
[2019-05-29] MEDS: Fish Oil 1,000 MG CAP PO SCH (21:56)
[2019-05-29] MEDS: Clindamycin 150 MG CAP PO SCH (21:57)
[2019-05-29] MEDS: Atorvastatin Calcium 40 MG TAB PO SCH (21:57)
[2019-05-30] MEDS: Clindamycin 150 MG CAP PO SCH ×4 (04:29→21:36)
[2019-05-30 05:34] LABS: #Basophils 0.2 thou/uL (0.0-0.2); #Eosinphils 0.4 thou/uL (0.0-0.7); #Lymphocytes 1.5 thou/uL (1.20-3.40); #Monocytes 1.3 thou/uL (0.11-0.59); #Neutrophils 10.1 thou/uL (1.40-6.50); %Basophils 1.1 % (0.0-1.0); %Eosinophils 2.6 % (0.0-10.0); %Lymphocytes 11.3 % (21.0-51.0); %Monocytes 9.4 % (0.0-10.0); %Neutrophils 75.5 % (42.0-75.0); ALT (SGPT) 42 U/L (8-55); AST (SGOT) 30 U/L (5-34); Albumin 3.3 g/dL (3.4-4.8); Alkaline Phosphatase 74 U/L (40-150); Anion Gap 15 mmol/L (10-20); BUN (Urea Nitrogen) 17 mg/dL (8.4-25.7); Bilirubin, Total 0.7 mg/dL (0.2-1.2); Calc. Creatinine Clearance 124 mL/min (70-130); Calcium 9.3 mg/dL (7.8-10.44); Carbon Dioxide 21 mmol/L (23-31); Chloride 100 mmol/L (98-107); Estimated GFR-MDRD Greater than 90; Glucose 103 mg/dL (80-115); Hemoglobin 11.2 g/dL (14.0-18.0); Mean Corpuscular HGB CONC 33.7 g/dL (32.0-36.0); Mean Corpuscular Hemoglobin 30.5 pg (27.0-31.0); Mean Corpuscular Volume 90.7 fL (78.0-98.0); Mean Platelet Volume 7.8 fL (7.4-10.4); Platelet Count 235 thou/uL (130-400); Potassium 4.6 mmol/L (3.5-5.1); Protein, Total 7.3 g/dL (5.8-8.1); RBC Distribution Width 11.9 % (11.5-14.5); Red Blood Cell (RBC) Count 3.68 mill/uL (4.70-6.10); Sodium 131 mmol/L (136-145); White Blood Cell (WBC) Count 13.3 thou/uL (4.8-10.8)
[2019-05-30] MEDS: Enoxaparin Sodium 40 MG/0.4 ML SYRINGE SC SCH (09:48)
[2019-05-30] MEDS: Ezetimibe 10 MG TAB PO SCH (09:49)
[2019-05-30] MEDS: Furosemide 40 MG TAB PO SCH (09:50)
[2019-05-30] MEDS: Lisinopril 5 MG TAB PO SCH (09:50)
[2019-05-30] MEDS: Stress 600 With Zinc 1 TAB PO SCH (09:50)
[2019-05-30] MEDS: Multivitamin W/ Minerals 1 TAB PO SCH (09:50)
[2019-05-30] MEDS: Carvedilol 6.25 MG TAB PO SCH ×2 (09:51→17:14)
[2019-05-30] MEDS: Fish Oil 1,000 MG CAP PO SCH ×2 (09:51→22:13)
[2019-05-30] MEDS: Ascorbic Acid 500 mg Chewable Tablet PO SCH (09:51)
[2019-05-30] MEDS: Aspirin 81 mg Enteric Coated Tablet PO SCH (09:52)
[2019-05-30] MEDS: HYDROcodone/Acetaminophen 5/325 mg Tablet PO PRN (11:01)
[2019-05-30 12:33] LABS: Hemoglobin A1c 5.5 % (4.0-6.0)
[2019-05-30] MEDS: Atorvastatin Calcium 40 MG TAB PO SCH (21:37)
[2019-05-31] MEDS: Clindamycin 150 MG CAP PO SCH ×4 (04:00→21:52)
[2019-05-31] MEDS: HYDROcodone/Acetaminophen 5/325 mg Tablet PO PRN (09:23)
[2019-05-31] MEDS: Enoxaparin Sodium 40 MG/0.4 ML SYRINGE SC SCH (09:25)
[2019-05-31] MEDS: Ascorbic Acid 500 mg Chewable Tablet PO SCH (09:26)
[2019-05-31] MEDS: Fish Oil 1,000 MG CAP PO SCH ×2 (09:26→21:53)
[2019-05-31] MEDS: Carvedilol 6.25 MG TAB PO SCH ×2 (09:26→17:30)
[2019-05-31] MEDS: Furosemide 40 MG TAB PO SCH (09:26)
[2019-05-31] MEDS: Stress 600 With Zinc 1 TAB PO SCH (09:26)
[2019-05-31] MEDS: Multivitamin W/ Minerals 1 TAB PO SCH (09:27)
[2019-05-31] MEDS: Lisinopril 5 MG TAB PO SCH (09:27)
[2019-05-31] MEDS: Aspirin 81 mg Enteric Coated Tablet PO SCH (09:27)
[2019-05-31] MEDS: Ezetimibe 10 MG TAB PO SCH (09:27)
[2019-05-31] MEDS: traMADol HCl 50 MG TAB PO PRN (16:25)
--- NOTE | 2019-05-31 20:20 | HP ---
PRIMARY CARE PHYSICIAN: Shanthi Gutierrez at [place]. CHIEF COMPLAINT: Extended stay for rehabilitation with fci care, wound care, physical and occupational therapy for right foot osteomyelitis, status post amputation of the right small toe and metatarsophalangeal joint. HISTORY OF PRESENT ILLNESS: Mr. Yang is a pleasant 69-year-old gentleman with history of coronary artery disease status post CABG, diastolic congestive heart failure with EF of 40% to 45%, peripheral vascular disease, hypertension, and chronic thrombocytopenia, admitted on May 29, 2019 at [facility] for fci, wound care, physical therapy. The patient was admitted for nonhealing wound on the right foot on 05/24/2019. Apparently, the patient fell last March resulting to a laceration that required 3 sutures. He then suffered another fall and caused wound dehiscence between the fourth and fifth digit. He was subsequently placed on oral antibiotics and was referred to our Wound Care under Dr. Silverman. During exam, she debrided bony fragments along the wound margins, due to the severity of the wound, he was subsequently admitted for possible right foot osteomyelitis. He was placed on IV vancomycin and Zosyn. The patient was referred to Dr. Rendon and subsequently underwent amputation of the right small toe and metatarsophalangeal joint on May 25. Wound VAC was placed. His wound grew MRSA sensitive to clindamycin, he was referred to Dr. Coburn and advised to switch to clindamycin for additional 14 days of treatment. Prior to his discharge, the patient had a right lower extremity ultrasound, which showed proximal aortoiliac disease suggesting of moderate stenosis between the common femoral and proximal superficial femoral artery and distal superficial femoral artery and popliteal artery. Recommendation to obtain CT angiography. He started physical therapy prior to his transfer, but only tolerated 2 seconds of standing position. PAST MEDICAL HISTORY: 1. Coronary artery disease, status post 1 vessel CABG in February 2016. 2. Diastolic congestive heart failure with EF of 45% to 50%. 3. Hypertension. 4. Hyperlipidemia. 5. Former smoker. 6. Obesity. 7. Chronic thrombocytopenia. 8. History of mild depression. SURGICAL HISTORY: 1. One vessel CABG. 2. Cardiac stents. 3. Cataract surgery. 4. Lumbar spine surgery. 5. Cholecystectomy. 6. Amputation of the right small toe and metatarsophalangeal joint. FAMILY HISTORY: Mother at the age of 62, due to coronary artery disease and diabetes. PERSONAL AND SOCIAL HISTORY: The patient is a former smoker, quit 15 years ago. Denies alcohol or drug use. The patient lives with in [place]. He is a retired power plant employee. ALLERGIES: NO KNOWN DRUG ALLERGIES. MEDICATIONS: 1. Clindamycin 300 mg q.i.d. 2. Lovenox 40 mg subcutaneous daily. 3. Zetia 10 mg daily. 4. Furosemide 40 mg daily. 5. [place] 5/325 every 8 hours p.r.n. for sdournaz-sq-ekqsaz pain. 6. Lisinopril 5 mg daily. 7. Tramadol 50 mg q.6 hours p.r.n. for moderate pain. 8. Tylenol 650 mg every 6 hours for mild pain. 9. Vitamin C daily. 10. Aspirin 81 mg daily. 11. Lipitor 80 mg at bedtime. REVIEW OF SYSTEMS: GENERAL: No fever. No chills. HEENT: Positive for blurred vision, wears glasses. Negative for sore throat. CARDIAC: No chest pain. No edema. RESPIRATORY: No shortness of breath. No cough. GI: No nausea, vomiting, or diarrhea. GENITOURINARY: Negative for dysuria or hematuria. MUSCULOSKELETAL: Positive for right foot pain, recent amputation of the right small toe. PSYCH: Positive for mild depression, positive for mild anxiety. DERMATOLOGY: Negative for rash or lesions. PHYSICAL EXAMINATION: VITAL SIGNS: Blood pressure 153/68, temperature 98.1, pulse of 70, respiration rate of 20, and O2 saturation 97% on room air. GENERAL: The patient is alert and oriented, not in respiratory distress. HEENT: Normocephalic and atraumatic. Pupils are equally reactive to light. NECK: Supple. Negative for lymphadenopathy. CHEST AND LUNGS: Symmetrical expansion. Clear to auscultation. HEART: Regular rate and rhythm. Negative for murmur. ABDOMEN: Flat, soft, and nontender. Normoactive bowel sounds. EXTREMITIES: Right foot with clean dressing, attached to a wound VAC. NEUROLOGIC: No focal deficits. Oriented x3. PSYCH: Appropriate affect and demeanor. LABORATORY DATA: Dated 05/30/2019, WBC of 13, hemoglobin of 11.2, hematocrit of 33.3, neutrophils of 75, and lymphocytes of 11. CMP; sodium of 131, potassium of 4.6, chloride of 100, carbon dioxide of 21, BUN of 17, and creatinine of 0.82. A1c of 5.5. ASSESSMENT: 1. A 69-year-old male with right foot osteomyelitis, status post amputation of the right small toe and metatarsophalangeal joint with wound VAC. 2. Diastolic congestive heart failure with ejection fraction of 45% to 50%. 3. Coronary artery disease, status post coronary artery bypass grafting x1 vessel, in February of 2016. 4. Peripheral vascular disease. 5. Former smoker. 6. Hypertension. 7. Hyperlipidemia. 8. Elevated blood glucose readings. 9. Mild depression. PLAN: 1. Continue wound care, physical and occupational therapy. 2. Clindamycin 300 mg to complete for 14 days. 3. We will monitor for infection, bleeding, pain, and side effects of current medication. 4. We will reconcile hospital medication and adjust dosage prior to his discharge. 5. Case management to address how the patient can be discharged safely in a timely manner. Anticipate discharge to home depending on the healing of the right foot and improvement of his gait. Job ID: [id number]
[2019-05-31] MEDS: Atorvastatin Calcium 40 MG TAB PO SCH (21:53)
[2019-06-01] MEDS: Clindamycin 150 MG CAP PO SCH ×4 (04:11→21:29)
[2019-06-01] MEDS: Fish Oil 1,000 MG CAP PO SCH ×2 (08:38→21:28)
[2019-06-01] MEDS: Ascorbic Acid 500 mg Chewable Tablet PO SCH (08:38)
[2019-06-01] MEDS: Aspirin 81 mg Enteric Coated Tablet PO SCH (08:38)
[2019-06-01] MEDS: Ezetimibe 10 MG TAB PO SCH (08:38)
[2019-06-01] MEDS: Furosemide 40 MG TAB PO SCH (08:38)
[2019-06-01] MEDS: Carvedilol 6.25 MG TAB PO SCH ×2 (08:39→16:56)
[2019-06-01] MEDS: Stress 600 With Zinc 1 TAB PO SCH (08:39)
[2019-06-01] MEDS: Multivitamin W/ Minerals 1 TAB PO SCH (08:39)
[2019-06-01] MEDS: Lisinopril 5 MG TAB PO SCH (08:40)
[2019-06-01] MEDS: Enoxaparin Sodium 40 MG/0.4 ML SYRINGE SC SCH (08:40)
--- NOTE | 2019-06-01 17:12 | RAD ---
RIGHT SHOULDER THREE VIEWS: 06/01/19 There is marked irregularity of the inferior lip of the glenoid fossa typical of a Bankart deformity , most often occurring from a prior anterior dislocation. This does not appear to be recent. No recen t fractures were seen. There is no dislocation. The AC joint is mildly narrowed. IMPRESSION: Old changes but no acute findings. Prior damage to the inferior lip of the glenoid fossa. POS: HOME
--- NOTE | 2019-06-01 17:13 | RAD ---
RIGHT ELBOW FOUR VIEWS: 06/01/19 No acute fracture or joint effusion was seen. A few bony densities around the lateral epicondyle sugg ests prior tendonitis here. There were no acute changes in the bones. IMPRESSION: Possible old lateral epicondylitis at the origin of the extensor tendons. No acute findings. POS: HOME
[2019-06-01] MEDS: HYDROcodone/Acetaminophen 5/325 mg Tablet PO PRN (18:46)
[2019-06-01] MEDS: Atorvastatin Calcium 40 MG TAB PO SCH (21:28)
[2019-06-01] MEDS: traMADol HCl 50 MG TAB PO PRN (21:31)
[2019-06-02] MEDS: Clindamycin 150 MG CAP PO SCH ×4 (04:43→21:50)
[2019-06-02] MEDS: Aspirin 81 mg Enteric Coated Tablet PO SCH (10:07)
[2019-06-02] MEDS: Enoxaparin Sodium 40 MG/0.4 ML SYRINGE SC SCH (10:07)
[2019-06-02] MEDS: Stress 600 With Zinc 1 TAB PO SCH (10:08)
[2019-06-02] MEDS: Multivitamin W/ Minerals 1 TAB PO SCH (10:08)
[2019-06-02] MEDS: Fish Oil 1,000 MG CAP PO SCH ×2 (10:08→21:50)
[2019-06-02] MEDS: Ezetimibe 10 MG TAB PO SCH (10:08)
[2019-06-02] MEDS: Ascorbic Acid 500 mg Chewable Tablet PO SCH (10:09)
[2019-06-02] MEDS: Lisinopril 5 MG TAB PO SCH (10:09)
[2019-06-02] MEDS: Furosemide 40 MG TAB PO SCH (10:10)
[2019-06-02] MEDS: Carvedilol 6.25 MG TAB PO SCH ×2 (10:10→17:03)
[2019-06-02] MEDS: HYDROcodone/Acetaminophen 5/325 mg Tablet PO PRN (14:55)
[2019-06-02] MEDS: traMADol HCl 50 MG TAB PO PRN (21:49)
[2019-06-02] MEDS: Atorvastatin Calcium 40 MG TAB PO SCH (21:50)
[2019-06-03] MEDS: Clindamycin 150 MG CAP PO SCH ×4 (04:18→21:11)
[2019-06-03] MEDS: HYDROcodone/Acetaminophen 5/325 mg Tablet PO PRN ×2 (04:18→14:24)
[2019-06-03] MEDS: Lisinopril 5 MG TAB PO SCH (10:01)
[2019-06-03] MEDS: Ezetimibe 10 MG TAB PO SCH (10:02)
[2019-06-03] MEDS: Carvedilol 6.25 MG TAB PO SCH ×2 (10:02→16:47)
[2019-06-03] MEDS: Multivitamin W/ Minerals 1 TAB PO SCH (10:02)
[2019-06-03] MEDS: Aspirin 81 mg Enteric Coated Tablet PO SCH (10:02)
[2019-06-03] MEDS: Stress 600 With Zinc 1 TAB PO SCH (10:02)
[2019-06-03] MEDS: Ascorbic Acid 500 mg Chewable Tablet PO SCH (10:03)
[2019-06-03] MEDS: Fish Oil 1,000 MG CAP PO SCH ×2 (10:03→21:11)
[2019-06-03] MEDS: Furosemide 40 MG TAB PO SCH (10:03)
[2019-06-03] MEDS: traMADol HCl 50 MG TAB PO PRN (10:03)
[2019-06-03] MEDS: Enoxaparin Sodium 40 MG/0.4 ML SYRINGE SC SCH (10:03)
[2019-06-03 16:08] LABS: Anion Gap 17 mmol/L (10-20); BUN (Urea Nitrogen) 24 mg/dL (8.4-25.7); Calc. Creatinine Clearance 120 mL/min (70-130); Calcium 9.3 mg/dL (7.8-10.44); Carbon Dioxide 21 mmol/L (23-31); Chloride 98 mmol/L (98-107); Estimated GFR-MDRD 90; Glucose 112 mg/dL (80-115); Magnesium 1.7 mg/dL (1.6-2.6); Potassium 4.7 mmol/L (3.5-5.1); Sodium 131 mmol/L (136-145)
--- NOTE | 2019-06-03 16:57 | PRG ---
DATE OF SERVICE: 06/03/2019 SUBJECTIVE: The patient is complaining of spasm on both legs, worse on the left, he did not sleep last night. states he is not participating well with physical therapy due to pain. He is also complaining of right shoulder and elbow pain, that started after the fall. reports depression, very emotional with crying spells. OBJECTIVE: VITAL SIGNS: Blood pressure of 143/65, temperature of 97.9, pulse of 67, respiratory rate of 20, O2 saturation 96% on room air. GENERAL: The patient is alert, oriented, not in respiratory distress, obese. HEENT: Normocephalic and atraumatic. Pupils are equally reactive to light. NECK: Supple. Negative for lymphadenopathy. CHEST AND LUNGS: Symmetrical expansion. Clear to auscultation. HEART: Regular rate and rhythm. Negative for murmur. ABDOMEN: Flat, soft, and nontender. EXTREMITIES: Positive for right diffuse shoulder tenderness. Positive for right posterior elbow tenderness. Positive for right foot with dressing attached to wound VAC. Left lower extremity appears normal, no deformity, no tenderness. Negative for Homans sign. NEUROLOGIC: No focal deficits. Oriented x3. PSYCHIATRIC: Slightly depressed mood. No homicidal or suicidal ideation. LABORATORY DATA: On 06/03/2019, sodium of 131, potassium 4.7, carbon dioxide of 21, BUN of 24, creatinine of 0.85. Glucose of 112, calcium of 9.3, magnesium of 1.7. Right shoulder x-ray showed old changes. No acute findings. Prior damage to the inferior lip of the glenoid fossa. Right elbow x-ray showed possible old lateral epicondylitis at the origin of the extensor tendon. No acute findings. ASSESSMENT: 1. A 69-year-old with right foot osteomyelitis, status post amputation of the right small toe and metatarsophalangeal joint with wound VAC. 2. Bilateral lower extremity muscle spasms. 3. Physical deconditioning secondary to #1. 4. Diastolic congestive heart failure with ejection fraction of 45% to 50%. 5. Coronary artery disease, status post coronary artery bypass grafting x1 vessel, February 2016. 6. Peripheral vascular disease. 7. Former smoker. 8. Hypertension. 9. Hyperlipidemia. 10. Depression. 11. Elevated fasting blood glucose with normal A1c. PLAN: 1. Check electrolytes including magnesium. 2. Advised to increase fluids. 3. Start cyclobenzaprine 5 mg b.i.d. schedule to alleviate spasms. 4. Pain medicine an hour before he starts physical and occupational therapy. 5. Zoloft 50 mg started, monitor for improvement of symptoms. 6. Continue present medications. 7. Continue wound care, physical and occupational therapy. 8. Anticipate discharge to home in about 3 to 4 weeks. Job ID: [id number]
[2019-06-03] MEDS: Cyclobenzaprine 10 MG TAB PO SCH (21:11)
[2019-06-03] MEDS: Atorvastatin Calcium 40 MG TAB PO SCH (22:59)
[2019-06-04] MEDS: Clindamycin 150 MG CAP PO SCH ×4 (03:50→21:05)
[2019-06-04] MEDS: Fish Oil 1,000 MG CAP PO SCH ×2 (09:09→21:06)
[2019-06-04] MEDS: Cyclobenzaprine 10 MG TAB PO SCH ×2 (09:10→21:06)
[2019-06-04] MEDS: Multivitamin W/ Minerals 1 TAB PO SCH (09:10)
[2019-06-04] MEDS: Stress 600 With Zinc 1 TAB PO SCH (09:10)
[2019-06-04] MEDS: Furosemide 40 MG TAB PO SCH (09:10)
[2019-06-04] MEDS: Aspirin 81 mg Enteric Coated Tablet PO SCH (09:10)
[2019-06-04] MEDS: Carvedilol 6.25 MG TAB PO SCH ×2 (09:11→16:48)
[2019-06-04] MEDS: Lisinopril 5 MG TAB PO SCH (09:13)
[2019-06-04] MEDS: Enoxaparin Sodium 40 MG/0.4 ML SYRINGE SC SCH (09:13)
[2019-06-04] MEDS: Ezetimibe 10 MG TAB PO SCH (09:13)
[2019-06-04] MEDS: HYDROcodone/Acetaminophen 5/325 mg Tablet PO PRN (09:44)
[2019-06-04] MEDS: Atorvastatin Calcium 40 MG TAB PO SCH (21:06)
[2019-06-05] MEDS: Clindamycin 150 MG CAP PO SCH ×4 (03:46→22:56)
[2019-06-05] MEDS: Cyclobenzaprine 10 MG TAB PO SCH ×2 (09:31→22:57)
[2019-06-05] MEDS: Ascorbic Acid 500 mg Chewable Tablet PO SCH (09:33)
[2019-06-05] MEDS: Stress 600 With Zinc 1 TAB PO SCH (09:34)
[2019-06-05] MEDS: HYDROcodone/Acetaminophen 5/325 mg Tablet PO PRN (09:34)
[2019-06-05] MEDS: Ezetimibe 10 MG TAB PO SCH (09:35)
[2019-06-05] MEDS: Furosemide 40 MG TAB PO SCH (09:35)
[2019-06-05] MEDS: Aspirin 81 mg Enteric Coated Tablet PO SCH (09:35)
[2019-06-05] MEDS: Fish Oil 1,000 MG CAP PO SCH ×2 (09:35→22:57)
[2019-06-05] MEDS: Lisinopril 5 MG TAB PO SCH (09:35)
[2019-06-05] MEDS: Multivitamin W/ Minerals 1 TAB PO SCH (09:35)
[2019-06-05] MEDS: Carvedilol 6.25 MG TAB PO SCH ×2 (09:35→16:35)
[2019-06-05] MEDS: Enoxaparin Sodium 40 MG/0.4 ML SYRINGE SC SCH (09:36)
[2019-06-05] MEDS: Acetaminophen 325 MG TAB PO PRN (16:43)
--- NOTE | 2019-06-05 20:02 | RAD ---
LEFT HAND THREE VIEWS: 06/05/19 Some minor bony spurring is seen in some of the IP joints of the fingers, more distal than proximal. No acute fracture was noted. The carpal relationships seem normal. The distal radius and ulna appear intact. IMPRESSION: No acute finding. POS: HOME
[2019-06-05] MEDS: Atorvastatin Calcium 40 MG TAB PO SCH (22:57)
[2019-06-06] MEDS: Clindamycin 150 MG CAP PO SCH ×4 (03:30→21:02)
[2019-06-06] MEDS: HYDROcodone/Acetaminophen 5/325 mg Tablet PO PRN (08:51)
[2019-06-06] MEDS: Cyclobenzaprine 10 MG TAB PO SCH ×2 (08:53→21:02)
[2019-06-06] MEDS: Ascorbic Acid 500 mg Chewable Tablet PO SCH (08:53)
[2019-06-06] MEDS: Aspirin 81 mg Enteric Coated Tablet PO SCH (08:55)
[2019-06-06] MEDS: Lisinopril 5 MG TAB PO SCH (08:55)
[2019-06-06] MEDS: Ezetimibe 10 MG TAB PO SCH (08:55)
[2019-06-06] MEDS: Stress 600 With Zinc 1 TAB PO SCH (08:55)
[2019-06-06] MEDS: Multivitamin W/ Minerals 1 TAB PO SCH (08:56)
[2019-06-06] MEDS: Carvedilol 6.25 MG TAB PO SCH ×2 (08:56→16:46)
[2019-06-06] MEDS: Fish Oil 1,000 MG CAP PO SCH ×2 (08:56→21:02)
[2019-06-06] MEDS: Furosemide 40 MG TAB PO SCH (08:56)
[2019-06-06] MEDS: Enoxaparin Sodium 40 MG/0.4 ML SYRINGE SC SCH (08:56)
[2019-06-06] MEDS: traMADol HCl 50 MG TAB PO PRN (13:14)
[2019-06-06] MEDS: Atorvastatin Calcium 40 MG TAB PO SCH (21:02)
[2019-06-07] MEDS: HYDROcodone/Acetaminophen 5/325 mg Tablet PO PRN (01:56)
[2019-06-07] MEDS: Clindamycin 150 MG CAP PO SCH ×5 (04:23→21:27)
[2019-06-07] MEDS: Lisinopril 5 MG TAB PO SCH (08:53)
[2019-06-07] MEDS: Ascorbic Acid 500 mg Chewable Tablet PO SCH (08:54)
[2019-06-07] MEDS: Furosemide 40 MG TAB PO SCH (08:54)
[2019-06-07] MEDS: Multivitamin W/ Minerals 1 TAB PO SCH (08:54)
[2019-06-07] MEDS: Aspirin 81 mg Enteric Coated Tablet PO SCH (08:54)
[2019-06-07] MEDS: Fish Oil 1,000 MG CAP PO SCH ×2 (08:54→21:27)
[2019-06-07] MEDS: Enoxaparin Sodium 40 MG/0.4 ML SYRINGE SC SCH (08:54)
[2019-06-07] MEDS: Ezetimibe 10 MG TAB PO SCH (08:54)
[2019-06-07] MEDS: Stress 600 With Zinc 1 TAB PO SCH (08:54)
[2019-06-07] MEDS: Carvedilol 6.25 MG TAB PO SCH ×2 (08:54→17:14)
[2019-06-07] MEDS: Cyclobenzaprine 10 MG TAB PO SCH ×2 (08:55→21:27)
[2019-06-07] MEDS: traMADol HCl 50 MG TAB PO PRN (17:14)
[2019-06-07] MEDS: Atorvastatin Calcium 40 MG TAB PO SCH (21:27)
[2019-06-08] MEDS: HYDROcodone/Acetaminophen 5/325 mg Tablet PO PRN ×2 (01:53→08:17)
[2019-06-08] MEDS: Clindamycin 150 MG CAP PO SCH ×4 (04:30→22:03)
[2019-06-08] MEDS: Stress 600 With Zinc 1 TAB PO SCH (08:19)
[2019-06-08] MEDS: Multivitamin W/ Minerals 1 TAB PO SCH (08:20)
[2019-06-08] MEDS: Carvedilol 6.25 MG TAB PO SCH ×2 (08:20→16:47)
[2019-06-08] MEDS: Cyclobenzaprine 10 MG TAB PO SCH ×2 (08:20→22:03)
[2019-06-08] MEDS: Furosemide 40 MG TAB PO SCH (08:20)
[2019-06-08] MEDS: Ascorbic Acid 500 mg Chewable Tablet PO SCH (08:21)
[2019-06-08] MEDS: Fish Oil 1,000 MG CAP PO SCH ×2 (08:21→22:02)
[2019-06-08] MEDS: Aspirin 81 mg Enteric Coated Tablet PO SCH (08:21)
[2019-06-08] MEDS: Enoxaparin Sodium 40 MG/0.4 ML SYRINGE SC SCH (08:21)
[2019-06-08] MEDS: Ezetimibe 10 MG TAB PO SCH (08:21)
[2019-06-08] MEDS: Lisinopril 5 MG TAB PO SCH (08:22)
[2019-06-08] MEDS ORDERED: Ibuprofen 200 MG TAB PO PRN (18:16)
[2019-06-08] MEDS: Atorvastatin Calcium 40 MG TAB PO SCH (22:03)
[2019-06-08] MEDS: Colchicine 0.6 MG TAB PO SCH (22:03)
[2019-06-09] MEDS: Clindamycin 150 MG CAP PO SCH (03:55)
[2019-06-09] MEDS: Fish Oil 1,000 MG CAP PO SCH ×2 (10:04→21:01)
[2019-06-09] MEDS: Colchicine 0.6 MG TAB PO SCH ×2 (10:04→21:01)
[2019-06-09] MEDS: Ascorbic Acid 500 mg Chewable Tablet PO SCH (10:04)
[2019-06-09] MEDS: Stress 600 With Zinc 1 TAB PO SCH (10:05)
[2019-06-09] MEDS: Cyclobenzaprine 10 MG TAB PO SCH ×2 (10:05→21:01)
[2019-06-09] MEDS: Aspirin 81 mg Enteric Coated Tablet PO SCH (10:05)
[2019-06-09] MEDS: Furosemide 40 MG TAB PO SCH (10:06)
[2019-06-09] MEDS: Ezetimibe 10 MG TAB PO SCH (10:06)
[2019-06-09] MEDS: Multivitamin W/ Minerals 1 TAB PO SCH (10:06)
[2019-06-09] MEDS: Carvedilol 6.25 MG TAB PO SCH ×2 (10:06→17:49)
[2019-06-09] MEDS: Enoxaparin Sodium 40 MG/0.4 ML SYRINGE SC SCH (10:09)
[2019-06-09] MEDS: Lisinopril 5 MG TAB PO SCH (10:09)
[2019-06-09] MEDS: Atorvastatin Calcium 40 MG TAB PO SCH (21:01)
[2019-06-10] MEDS: Clindamycin 150 MG CAP PO SCH ×3 (05:05→17:11)
[2019-06-10] MEDS: Furosemide 40 MG TAB PO SCH (09:13)
[2019-06-10] MEDS: Cyclobenzaprine 10 MG TAB PO SCH ×2 (09:13→21:38)
[2019-06-10] MEDS: Stress 600 With Zinc 1 TAB PO SCH (09:13)
[2019-06-10] MEDS: Colchicine 0.6 MG TAB PO SCH ×2 (09:13→21:35)
[2019-06-10] MEDS: Aspirin 81 mg Enteric Coated Tablet PO SCH (09:13)
[2019-06-10] MEDS: Ezetimibe 10 MG TAB PO SCH (09:13)
[2019-06-10] MEDS: Fish Oil 1,000 MG CAP PO SCH ×2 (09:13→21:38)
[2019-06-10] MEDS: Ascorbic Acid 500 mg Chewable Tablet PO SCH (09:13)
[2019-06-10] MEDS: Multivitamin W/ Minerals 1 TAB PO SCH (09:13)
[2019-06-10] MEDS: Carvedilol 6.25 MG TAB PO SCH ×2 (09:14→17:11)
[2019-06-10] MEDS: Lisinopril 5 MG TAB PO SCH (09:16)
[2019-06-10] MEDS: Enoxaparin Sodium 40 MG/0.4 ML SYRINGE SC SCH (09:16)
[2019-06-10] MEDS ORDERED: Loperamide HCl 2 MG CAP PO PRN ×2 (18:11→18:12)
[2019-06-10] MEDS: Atorvastatin Calcium 40 MG TAB PO SCH (21:37)
[2019-06-10] MEDS: Nystatin 500,000 UNITS/5 ML UDCUP SSW SCH (21:38)
[2019-06-11] MEDS ORDERED: Cyclobenzaprine 10 MG TAB ONE (08:24)
[2019-06-11] MEDS: Aspirin 81 mg Enteric Coated Tablet PO SCH (09:36)
[2019-06-11] MEDS: Ascorbic Acid 500 mg Chewable Tablet PO SCH (09:36)
[2019-06-11] MEDS: Lisinopril 5 MG TAB PO SCH (09:36)
[2019-06-11] MEDS: Ezetimibe 10 MG TAB PO SCH (09:36)
[2019-06-11] MEDS: Stress 600 With Zinc 1 TAB PO SCH (09:38)
[2019-06-11] MEDS: Furosemide 40 MG TAB PO SCH (09:38)
[2019-06-11] MEDS: Fish Oil 1,000 MG CAP PO SCH ×2 (09:38→20:28)
[2019-06-11] MEDS: Carvedilol 6.25 MG TAB PO SCH ×2 (09:38→16:49)
[2019-06-11] MEDS: Saccharomyces boulardii 250 MG CAP PO SCH (09:39)
[2019-06-11] MEDS: Cyclobenzaprine 10 MG TAB PO SCH ×2 (09:39→20:28)
[2019-06-11] MEDS: Multivitamin W/ Minerals 1 TAB PO SCH (09:39)
[2019-06-11] MEDS: Nystatin 500,000 UNITS/5 ML UDCUP SSW SCH ×4 (09:40→21:02)
[2019-06-11] MEDS: Colchicine 0.6 MG TAB PO SCH (09:40)
[2019-06-11] MEDS: Enoxaparin Sodium 40 MG/0.4 ML SYRINGE SC SCH (09:40)
[2019-06-11 16:36] LABS: Hemoglobin 12.4 g/dL (14.0-18.0); Platelet Count 263 thou/uL (130-400)
[2019-06-11 18:08] LABS: Calc. Creatinine Clearance 120 mL/min (70-130); Estimated GFR-MDRD Greater than 90
[2019-06-11] MEDS: Atorvastatin Calcium 40 MG TAB PO SCH (20:27)
[2019-06-12] MEDS: Stress 600 With Zinc 1 TAB PO SCH (09:31)
[2019-06-12] MEDS: Ascorbic Acid 500 mg Chewable Tablet PO SCH (09:31)
[2019-06-12] MEDS: Enoxaparin Sodium 40 MG/0.4 ML SYRINGE SC SCH (09:31)
[2019-06-12] MEDS: Nystatin 500,000 UNITS/5 ML UDCUP SSW SCH ×4 (09:31→21:02)
[2019-06-12] MEDS: Fish Oil 1,000 MG CAP PO SCH ×2 (09:31→21:01)
[2019-06-12] MEDS: Aspirin 81 mg Enteric Coated Tablet PO SCH (09:32)
[2019-06-12] MEDS: Saccharomyces boulardii 250 MG CAP PO SCH (09:32)
[2019-06-12] MEDS: Carvedilol 6.25 MG TAB PO SCH ×2 (09:32→17:05)
[2019-06-12] MEDS: Furosemide 40 MG TAB PO SCH (09:32)
[2019-06-12] MEDS: Lisinopril 5 MG TAB PO SCH (09:32)
[2019-06-12] MEDS: Multivitamin W/ Minerals 1 TAB PO SCH (09:33)
[2019-06-12] MEDS: Cyclobenzaprine 10 MG TAB PO SCH ×2 (09:33→21:02)
[2019-06-12] MEDS: Ezetimibe 10 MG TAB PO SCH (09:34)
[2019-06-12] MEDS: Atorvastatin Calcium 40 MG TAB PO SCH (21:02)
[2019-06-13 05:48] LABS: Hemoglobin 11.9 g/dL (14.0-18.0); Platelet Count 230 thou/uL (130-400)
[2019-06-13] MEDS: Furosemide 40 MG TAB PO SCH (09:42)
[2019-06-13] MEDS: Fish Oil 1,000 MG CAP PO SCH ×2 (09:42→21:24)
[2019-06-13] MEDS: Nystatin 500,000 UNITS/5 ML UDCUP SSW SCH ×4 (09:42→21:25)
[2019-06-13] MEDS: Enoxaparin Sodium 40 MG/0.4 ML SYRINGE SC SCH (09:42)
[2019-06-13] MEDS: Lisinopril 5 MG TAB PO SCH (09:43)
[2019-06-13] MEDS: Cyclobenzaprine 10 MG TAB PO SCH ×2 (09:43→21:24)
[2019-06-13] MEDS: Stress 600 With Zinc 1 TAB PO SCH (09:43)
[2019-06-13] MEDS: Aspirin 81 mg Enteric Coated Tablet PO SCH (09:44)
[2019-06-13] MEDS: Colchicine 0.6 MG TAB PO SCH (09:44)
[2019-06-13] MEDS: Saccharomyces boulardii 250 MG CAP PO SCH (09:44)
[2019-06-13] MEDS: Ezetimibe 10 MG TAB PO SCH (09:44)
[2019-06-13] MEDS: Multivitamin W/ Minerals 1 TAB PO SCH (09:45)
[2019-06-13] MEDS: Carvedilol 6.25 MG TAB PO SCH ×2 (09:45→16:47)
[2019-06-13] MEDS: Atorvastatin Calcium 40 MG TAB PO SCH (21:24)
[2019-06-14] MEDS: Acetaminophen 325 MG TAB PO PRN (04:50)
[2019-06-14] MEDS: Enoxaparin Sodium 40 MG/0.4 ML SYRINGE SC SCH (09:58)
[2019-06-14] MEDS: Multivitamin W/ Minerals 1 TAB PO SCH (09:58)
[2019-06-14] MEDS: Stress 600 With Zinc 1 TAB PO SCH (09:58)
[2019-06-14] MEDS: Nystatin 500,000 UNITS/5 ML UDCUP SSW SCH ×4 (09:58→20:48)
[2019-06-14] MEDS: Cyclobenzaprine 10 MG TAB PO SCH ×2 (09:58→20:48)
[2019-06-14] MEDS: Ezetimibe 10 MG TAB PO SCH (09:58)
[2019-06-14] MEDS: Fish Oil 1,000 MG CAP PO SCH ×2 (09:59→20:48)
[2019-06-14] MEDS: Lisinopril 5 MG TAB PO SCH (09:59)
[2019-06-14] MEDS: Carvedilol 6.25 MG TAB PO SCH ×2 (10:00→16:58)
[2019-06-14] MEDS: Furosemide 40 MG TAB PO SCH (10:00)
[2019-06-14] MEDS: Aspirin 81 mg Enteric Coated Tablet PO SCH (10:00)
[2019-06-14] MEDS: Colchicine 0.6 MG TAB PO SCH (10:00)
[2019-06-14] MEDS: Saccharomyces boulardii 250 MG CAP PO SCH (10:01)
[2019-06-14] MEDS: Atorvastatin Calcium 40 MG TAB PO SCH (20:48)
[2019-06-15 05:53] LABS: Hemoglobin 10.8 g/dL (14.0-18.0); Platelet Count 181 thou/uL (130-400)
[2019-06-15 06:19] LABS: Calc. Creatinine Clearance 128 mL/min (70-130); Estimated GFR-MDRD Greater than 90
[2019-06-15] MEDS: Lisinopril 5 MG TAB PO SCH (09:27)
[2019-06-15] MEDS: Aspirin 81 mg Enteric Coated Tablet PO SCH (09:27)
[2019-06-15] MEDS: Nystatin 500,000 UNITS/5 ML UDCUP SSW SCH ×4 (09:27→21:30)
[2019-06-15] MEDS: Enoxaparin Sodium 40 MG/0.4 ML SYRINGE SC SCH (09:27)
[2019-06-15] MEDS: Stress 600 With Zinc 1 TAB PO SCH (09:28)
[2019-06-15] MEDS: Saccharomyces boulardii 250 MG CAP PO SCH (09:28)
[2019-06-15] MEDS: Fish Oil 1,000 MG CAP PO SCH ×2 (09:28→21:31)
[2019-06-15] MEDS: Furosemide 40 MG TAB PO SCH (09:29)
[2019-06-15] MEDS: Cyclobenzaprine 10 MG TAB PO SCH ×2 (09:29→21:31)
[2019-06-15] MEDS: Carvedilol 6.25 MG TAB PO SCH ×2 (09:29→17:11)
[2019-06-15] MEDS: Ezetimibe 10 MG TAB PO SCH (09:29)
[2019-06-15] MEDS: Colchicine 0.6 MG TAB PO SCH (09:30)
[2019-06-15] MEDS: Multivitamin W/ Minerals 1 TAB PO SCH (09:31)
[2019-06-15] MEDS ORDERED: Indomethacin 25 mg Capsule PO PRN (15:59)
[2019-06-15] MEDS ORDERED: DICLOFENAC GEL FS SCH (16:00)
[2019-06-15] MEDS: Atorvastatin Calcium 40 MG TAB PO SCH (21:31)
[2019-06-16] MEDS: Furosemide 40 MG TAB PO SCH (08:15)
[2019-06-16] MEDS: Aspirin 81 mg Enteric Coated Tablet PO SCH (08:16)
[2019-06-16] MEDS: Colchicine 0.6 MG TAB PO SCH (08:16)
[2019-06-16] MEDS: Carvedilol 6.25 MG TAB PO SCH ×2 (08:16→18:01)
[2019-06-16] MEDS: Enoxaparin Sodium 40 MG/0.4 ML SYRINGE SC SCH (08:17)
[2019-06-16] MEDS: Cyclobenzaprine 10 MG TAB PO SCH ×2 (08:17→20:44)
[2019-06-16] MEDS: Ezetimibe 10 MG TAB PO SCH (08:17)
[2019-06-16] MEDS: Multivitamin W/ Minerals 1 TAB PO SCH (08:18)
[2019-06-16] MEDS: Saccharomyces boulardii 250 MG CAP PO SCH (08:18)
[2019-06-16] MEDS: Lisinopril 5 MG TAB PO SCH (08:18)
[2019-06-16] MEDS: Fish Oil 1,000 MG CAP PO SCH ×2 (08:18→20:43)
[2019-06-16] MEDS: Nystatin 500,000 UNITS/5 ML UDCUP SSW SCH ×4 (08:18→20:44)
[2019-06-16] MEDS: Stress 600 With Zinc 1 TAB PO SCH (08:19)
[2019-06-16] MEDS: Acetaminophen 325 MG TAB PO PRN ×2 (08:33→18:04)
[2019-06-16] MEDS: Atorvastatin Calcium 40 MG TAB PO SCH (20:43)
[2019-06-16] MEDS: Ibuprofen 800 MG TAB PO PRN (20:44)
[2019-06-17 05:40] LABS: Hemoglobin 10.5 g/dL (14.0-18.0); Platelet Count 165 thou/uL (130-400)
[2019-06-17] MEDS: Carvedilol 6.25 MG TAB PO SCH ×2 (07:56→17:07)
[2019-06-17] MEDS: Furosemide 40 MG TAB PO SCH (07:56)
[2019-06-17] MEDS: Acetaminophen 325 MG TAB PO PRN (08:21)
[2019-06-17] MEDS: Ezetimibe 10 MG TAB PO SCH (09:51)
[2019-06-17] MEDS: Cyclobenzaprine 10 MG TAB PO SCH ×2 (09:51→21:42)
[2019-06-17] MEDS: Colchicine 0.6 MG TAB PO SCH (09:51)
[2019-06-17] MEDS: Stress 600 With Zinc 1 TAB PO SCH (09:53)
[2019-06-17] MEDS: Lisinopril 5 MG TAB PO SCH (09:53)
[2019-06-17] MEDS: Multivitamin W/ Minerals 1 TAB PO SCH (09:53)
[2019-06-17] MEDS: Fish Oil 1,000 MG CAP PO SCH ×2 (09:53→21:42)
[2019-06-17] MEDS: Aspirin 81 mg Enteric Coated Tablet PO SCH (09:53)
[2019-06-17] MEDS: Nystatin 500,000 UNITS/5 ML UDCUP SSW SCH ×4 (09:54→21:43)
[2019-06-17] MEDS: Enoxaparin Sodium 40 MG/0.4 ML SYRINGE SC SCH (09:54)
[2019-06-17] MEDS: Saccharomyces boulardii 250 MG CAP PO SCH (09:54)
[2019-06-17] MEDS: Atorvastatin Calcium 40 MG TAB PO SCH (21:42)
[2019-06-18 06:27] VITALS: BMI 34.5
[2019-06-18] MEDS: Enoxaparin Sodium 40 MG/0.4 ML SYRINGE SC SCH (08:30)
[2019-06-18] MEDS: Fish Oil 1,000 MG CAP PO SCH ×2 (08:30→20:32)
[2019-06-18] MEDS: Nystatin 500,000 UNITS/5 ML UDCUP SSW SCH ×4 (08:30→20:31)
[2019-06-18] MEDS: Stress 600 With Zinc 1 TAB PO SCH (08:30)
[2019-06-18] MEDS: Saccharomyces boulardii 250 MG CAP PO SCH (08:31)
[2019-06-18] MEDS: Colchicine 0.6 MG TAB PO SCH (08:31)
[2019-06-18] MEDS: Cyclobenzaprine 10 MG TAB PO SCH ×2 (08:31→20:32)
[2019-06-18] MEDS: Aspirin 81 mg Enteric Coated Tablet PO SCH (08:31)
[2019-06-18] MEDS: Ezetimibe 10 MG TAB PO SCH (08:32)
[2019-06-18] MEDS: Lisinopril 5 MG TAB PO SCH (08:32)
[2019-06-18] MEDS: Furosemide 40 MG TAB PO SCH (08:32)
[2019-06-18] MEDS: Carvedilol 6.25 MG TAB PO SCH ×2 (08:33→16:55)
[2019-06-18] MEDS: Multivitamin W/ Minerals 1 TAB PO SCH (08:33)
[2019-06-18] MEDS: Atorvastatin Calcium 40 MG TAB PO SCH (20:32)
[2019-06-19 06:01] LABS: Platelet Count 162 thou/uL (130-400)
[2019-06-19] MEDS: Carvedilol 6.25 MG TAB PO SCH ×2 (07:31→17:07)
[2019-06-19] MEDS: Furosemide 40 MG TAB PO SCH (07:31)
[2019-06-19 09:53] LABS: Calc. Creatinine Clearance 128 mL/min (70-130); Estimated GFR-MDRD Greater than 90
[2019-06-19] MEDS: Lisinopril 5 MG TAB PO SCH (10:30)
[2019-06-19] MEDS: Fish Oil 1,000 MG CAP PO SCH ×2 (10:31→20:52)
[2019-06-19] MEDS: Multivitamin W/ Minerals 1 TAB PO SCH (10:31)
[2019-06-19] MEDS: Aspirin 81 mg Enteric Coated Tablet PO SCH (10:31)
[2019-06-19] MEDS: Saccharomyces boulardii 250 MG CAP PO SCH (10:31)
[2019-06-19] MEDS: Stress 600 With Zinc 1 TAB PO SCH (10:31)
[2019-06-19] MEDS: Cyclobenzaprine 10 MG TAB PO SCH ×2 (10:32→20:52)
[2019-06-19] MEDS: Ezetimibe 10 MG TAB PO SCH (10:33)
[2019-06-19] MEDS: Enoxaparin Sodium 40 MG/0.4 ML SYRINGE SC SCH (10:33)
[2019-06-19] MEDS: Colchicine 0.6 MG TAB PO SCH (10:33)
[2019-06-19] MEDS: Nystatin 500,000 UNITS/5 ML UDCUP SSW SCH ×4 (10:33→20:53)
[2019-06-19] MEDS: Atorvastatin Calcium 40 MG TAB PO SCH (20:52)
[2019-06-20] MEDS: Ezetimibe 10 MG TAB PO SCH (09:50)
[2019-06-20] MEDS: Nystatin 500,000 UNITS/5 ML UDCUP SSW SCH ×4 (09:50→22:18)
[2019-06-20] MEDS: Stress 600 With Zinc 1 TAB PO SCH (09:50)
[2019-06-20] MEDS: Enoxaparin Sodium 40 MG/0.4 ML SYRINGE SC SCH (09:50)
[2019-06-20] MEDS: Cyclobenzaprine 10 MG TAB PO SCH ×2 (09:51→22:18)
[2019-06-20] MEDS: Multivitamin W/ Minerals 1 TAB PO SCH (09:53)
[2019-06-20] MEDS: Colchicine 0.6 MG TAB PO SCH (09:53)
[2019-06-20] MEDS: Fish Oil 1,000 MG CAP PO SCH ×2 (09:54→22:18)
[2019-06-20] MEDS: Saccharomyces boulardii 250 MG CAP PO SCH (09:54)
[2019-06-20] MEDS: Furosemide 40 MG TAB PO SCH (09:54)
[2019-06-20] MEDS: Aspirin 81 mg Enteric Coated Tablet PO SCH (09:54)
[2019-06-20] MEDS: Carvedilol 6.25 MG TAB PO SCH ×2 (09:55→16:56)
[2019-06-20] MEDS: Lisinopril 5 MG TAB PO SCH (09:57)
[2019-06-20] MEDS: Ibuprofen 800 MG TAB PO PRN ×2 (10:04→22:21)
[2019-06-20] MEDS: Atorvastatin Calcium 40 MG TAB PO SCH (22:18)
[2019-06-21 06:14] LABS: Hemoglobin 10.6 g/dL (14.0-18.0); Platelet Count 130 thou/uL (130-400)
[2019-06-21] MEDS: Enoxaparin Sodium 40 MG/0.4 ML SYRINGE SC SCH (09:53)
[2019-06-21] MEDS: Cyclobenzaprine 10 MG TAB PO SCH ×2 (09:53→20:57)
[2019-06-21] MEDS: Colchicine 0.6 MG TAB PO SCH ×2 (09:53→09:58)
[2019-06-21] MEDS: Fish Oil 1,000 MG CAP PO SCH ×2 (09:54→20:57)
[2019-06-21] MEDS: Multivitamin W/ Minerals 1 TAB PO SCH (09:54)
[2019-06-21] MEDS: Stress 600 With Zinc 1 TAB PO SCH (09:54)
[2019-06-21] MEDS: Saccharomyces boulardii 250 MG CAP PO SCH (09:54)
[2019-06-21] MEDS: Furosemide 40 MG TAB PO SCH (09:55)
[2019-06-21] MEDS: Lisinopril 5 MG TAB PO SCH (09:55)
[2019-06-21] MEDS: Aspirin 81 mg Enteric Coated Tablet PO SCH (09:55)
[2019-06-21] MEDS: Ezetimibe 10 MG TAB PO SCH (09:55)
[2019-06-21] MEDS: Carvedilol 6.25 MG TAB PO SCH ×2 (09:56→17:14)
[2019-06-21] MEDS: Nystatin 500,000 UNITS/5 ML UDCUP SSW SCH ×4 (09:56→20:56)
[2019-06-21] MEDS: Ibuprofen 800 MG TAB PO PRN (13:25)
[2019-06-21] MEDS: Atorvastatin Calcium 40 MG TAB PO SCH (20:56)
[2019-06-22 06:01] VITALS: TEMP 98.1
[2019-06-22] MEDS: Nystatin 500,000 UNITS/5 ML UDCUP SSW SCH (09:20)
[2019-06-22] MEDS: Fish Oil 1,000 MG CAP PO SCH (09:21)
[2019-06-22] MEDS: Ezetimibe 10 MG TAB PO SCH (09:21)
[2019-06-22] MEDS: Lisinopril 5 MG TAB PO SCH (09:21)
[2019-06-22] MEDS: Saccharomyces boulardii 250 MG CAP PO SCH (09:22)
[2019-06-22] MEDS: Cyclobenzaprine 10 MG TAB PO SCH (09:22)
[2019-06-22] MEDS: Furosemide 40 MG TAB PO SCH (09:22)
[2019-06-22] MEDS: Carvedilol 6.25 MG TAB PO SCH (09:22)
[2019-06-22] MEDS: Stress 600 With Zinc 1 TAB PO SCH (09:23)
[2019-06-22] MEDS: Colchicine 0.6 MG TAB PO SCH (09:23)
[2019-06-22] MEDS: Aspirin 81 mg Enteric Coated Tablet PO SCH (09:23)
[2019-06-22] MEDS: Enoxaparin Sodium 40 MG/0.4 ML SYRINGE SC SCH (09:23)
[2019-06-22] MEDS: Multivitamin W/ Minerals 1 TAB PO SCH (09:23)
[2019-06-22 09:26] VITALS: BP 114/56
--- NOTE | 2019-06-22 19:10 | PRG ---
DATE OF SERVICE: 06/05/2019 SUBJECTIVE: The patient is complaining of pain 10/10 on left hand, second finger, and joints are diffusely swollen, he was medicated with Water[place] 5/325 combined with hand elevation, the pain slightly improved. The patient admitted to history of gout. The patient is participating with physical and occupational therapy. He walked 104 feet today with a rolling walker. OBJECTIVE: VITAL SIGNS: Blood pressure 146/65, temperature of 97.8, pulse of 77, respiratory rate of 18, O2 saturation 96% on room air. GENERAL: The patient is alert, oriented, in mild distress secondary to left hand pain. HEENT: Normocephalic and atraumatic. Pupils equal and reactive to light. Wet mucous membrane. NECK: Supple. Negative for lymphadenopathy. CHEST AND LUNGS: Symmetrical expansion. Clear to auscultation. HEART: Regular rate and rhythm. Negative for murmur. ABDOMEN: Flat, soft, nontender. EXTREMITIES: Positive for diffuse swelling of the second digit of left hand, painful joints of the affected digit, noticeable warmth and erythema. Positive for right foot dressing attached to wound VAC. NEUROLOGIC: No focal deficits. Oriented x3. PSYCHIATRIC: Slightly depressed mood. No homicidal or suicidal ideations. LABORATORY DATA: Labs reviewed. ASSESSMENT: 1. A 69-year-old with right foot osteomyelitis, status post amputation of the right small toe and metatarsophalangeal joint with wound VAC. 2. Bilateral lower extremity muscle spasm, resolved. 3. Acute left hand pain. 4. Diastolic congestive heart failure with ejection fraction of 45% to 50%. 5. Coronary artery disease, status post coronary artery bypass grafting x1 vessel, February of 2016. 6. Peripheral vascular disease. 7. Former smoker. 8. Hypertension. 9. Hyperlipidemia. 10. Depression, improving. 11. Elevated fasting blood glucose with normal A1c. PLAN: 1. Check uric acid. Start Colchine 0.6 mg BID. 2. Advised to elevate affected hand. May need to change his NSAIDs to indomethacin. 3. Increase Zoloft to 100 mg if still with worsening depression. 4. Continue wound care, physical and occupational therapy. 5. Anticipate discharge to home in 2 to 3 weeks. Job ID: [id number] [facility]
--- NOTE | 2019-06-22 19:46 | PRG ---
DATE OF SERVICE: 06/08/2019 SUBJECTIVE: The patient has slight improvement of left hand pain after taking colchicine. The pain was secondary to gout attack with elevated uric acid. However, after starting colchicine, he developed diarrhea. He finished 14-day course of clindamycin. The patient is participating well with physical and occupational therapy. According to wound care notes, wound measurement is 5.2 x 3.6 x 4.2. There is no tunneling, no undermining, wound bed has good granulation. The patient is still having episodes of depression. OBJECTIVE: VITAL SIGNS: Blood pressure of 116/48, temperature 98.1, pulse of 73, respirations 16, O2 saturation 98% on room air. GENERAL: The patient is alert, oriented, not in respiratory distress, appears depressed. HEENT: Normocephalic and atraumatic, wet mucous membrane. NECK: Supple. Negative for lymphadenopathy. CHEST AND LUNGS: Symmetrical expansion. Clear to auscultation. HEART: Regular rate and rhythm. ABDOMEN: Flat, soft, nontender. EXTREMITIES: Positive for swelling of the left hand, improved from previous exam. Slightly decreased range of motion of the affected digit. Positive for right foot dressing attached to wound VAC. Left lower extremity appears normal, no deformity, no tenderness. Negative for Homans sign. NEUROLOGIC: No focal deficits. Oriented x3. PSYCHIATRIC: Slightly depressed mood. No homicidal or suicidal ideation. LABORATORY DATA: Uric acid of 8.6, sodium of 131, potassium 4.7, glucose of 90, BUN of 24, creatinine of 0.85, calcium of 9.3, magnesium of 1.7. ASSESSMENT: 1. A 69-year-old white male with right foot osteomyelitis, status post amputation of the right small toe and metatarsophalangeal joint with wound VAC. 2. Left hand swelling with decreased range of motion of the third digit secondary to gout. 3. Physical deconditioning secondary to #1. 4. Diastolic congestive heart failure with ejection fraction of 45% to 50%. 5. Coronary artery disease, status post coronary artery bypass graft x1 vessel in February of 2016. 6. Peripheral vascular disease. 7. Former smoker. 8. Hypertension. 9. Hyperlipidemia. 10. Moderate depression. PLAN: 1. Resume colchicine 0.6 mg daily. 2. Start indomethacin. 3. Continue Zoloft 100 mg daily. Continue wound care, physical and occupational therapy. 4. Anticipate discharge to home in 2 to 3 weeks. Job ID: [id number]
--- NOTE | 2019-06-22 20:38 | PRG ---
DATE OF SERVICE: 06/15/2019 SUBJECTIVE: The patient denies any complaints except for left hand pain affecting second digit. Still has occasional spasms alternating on both legs, tolerable, improved with Flexeril. The patient is participating well with physical and occupational therapy. OBJECTIVE: VITAL SIGNS: Blood pressure of 116/59, temperature of 97.8, pulse of 74, RR of 18, O2 saturation 99% on room air. GENERAL: The patient is alert, chronically ill-appearing, appears blunt affect. HEENT: Normocephalic, atraumatic. Pupils are equal, reactive to light. NECK: Supple. Negative for lymphadenopathy. CHEST AND LUNGS: Symmetrical expansion. Clear to auscultation. HEART: Regular rate and rhythm. ABDOMEN: Obese, flat, soft, nontender. EXTREMITIES: Positive for diffuse swelling of the left index finger, decreased range of motion. Positive for right foot dressing attached to wound VAC. Left leg appears normal. No deformity. No tenderness. Negative for Homans sign. NEUROLOGIC: No focal deficits. Oriented x3. PSYCHIATRIC: Depressed mood. No homicidal or suicidal ideation. LABORATORY DATA: Hemoglobin of 10.8, hematocrit of 32.5. Creatinine of 0.78, GFR of 90. ASSESSMENT: 1. A 69-year-old with right foot osteomyelitis, status post amputation of the right small toe and metatarsophalangeal joint with wound VAC. 2. Left second digit pain with swelling secondary to gouty arthritis. 3. Bilateral lower extremity muscle spasms. 4. Physical deconditioning secondary to #1. 5. Diastolic congestive heart failure with ejection fraction of 45% to 50%. 6. Coronary artery disease, status post coronary artery bypass graft x1 vessel in February 2016. 7. Peripheral vascular disease. 8. Former smoker. 9. Hypertension. 10. Hyperlipidemia. 11. Moderate depression. 12. Diarrhea secondary to colchicine. PLAN: 1. Continue wound care, physical and occupational therapy. 2. Referral for home health for wound care. 3. Continue colchicine 0.6 mg daily. 4. Continue indomethacin p.r.n. for pain. 5. Anticipate discharge in 1 week. Job ID: [id number]
== END 2019-06-22 14:40 | disposition home or self-care (01) | DRG 540 ==
LOC: BURMED 17:20
PROVIDERS: ADMIT Family Medicine; ATTEND Family Medicine
DX: M86.8X7 Other osteomyelitis, ankle and foot (principal); I50.30 Unspecified diastolic (congestive) heart failure; K52.1 Toxic gastroenteritis and colitis; I25.10 Atherosclerotic heart disease of native coronary artery without angina pectoris; I11.0 Hypertensive heart disease with heart failure; E78.5 Hyperlipidemia, unspecified; E66.9 Obesity, unspecified; I73.9 Peripheral vascular disease, unspecified; F32.9 Major depressive disorder, single episode, unspecified; M62.838 Other muscle spasm; R53.81 Other malaise; R73.01 Impaired fasting glucose; M10.9 Gout, unspecified; M79.642 Pain in left hand; T50.4X5A Adverse effect of drugs affecting uric acid metabolism, initial encounter; Z87.891 Personal history of nicotine dependence; Z95.1 Presence of aortocoronary bypass graft; Z90.49 Acquired absence of other specified parts of digestive tract; Z89.421 Acquired absence of other right toe(s); Z98.49 Cataract extraction status, unspecified eye; Z79.82 Long term (current) use of aspirin; Z79.2 Long term (current) use of antibiotics; Z68.34 Body mass index [BMI] 34.0-34.9, adult
CPT/HCPCS: 36415; 80048; 80053; 82565; 83036; 83735; 84550; 85014; 85018; 85025; 85049; J1650

== ENCOUNTER 2021-08-04 10:09 | Inpatient (IN) | payer MEDICARE ==
[~2021-08-04 10:09] MED LIST: Iopamidol 370 76% 100 ML VIAL ONE
[2021-08-04 10:42] LABS: Bilirubin Negative (Negative); Blood, Urine Trace (Negative); Clarity Slightly Cloudy (Clear); Glucose, Urine (Dipstick) Negative (Negative); Ketone, Urine Negative (Negative); Leukocyte Negative (Negative); Nitrite Negative (Negative); Protein, Urine (Dipstick) Negative (Neg-Trace); pH, Urine 5.5 (5.0-9.0)
[2021-08-04 10:57] LABS: ALT (SGPT) 33 U/L (8-55); AST (SGOT) 38 U/L (5-34); Albumin 3.2 g/dL (3.4-4.8); Alkaline Phosphatase 90 U/L (40-110); Anion Gap 14 mmol/L (10-20); BUN (Urea Nitrogen) 22 mg/dL (8.4-25.7); Bilirubin, Total 0.7 mg/dL (0.2-1.2); Calc. Creatinine Clearance 0 mL/min (70-130); Carbon Dioxide 24 mmol/L (23-31); Chloride 104 mmol/L (98-107); Globulin 4.1 g/dL (2.4-3.5); Glucose 128 mg/dL (80-115); Potassium 4.4 mmol/L (3.5-5.1); Protein, Total 7.3 g/dL (5.8-8.1); Sodium 138 mmol/L (136-145)
[2021-08-04 11:02] LABS: Bacteria/HPF Rare-Few HPF (None Seen); RBC/HPF 0-3 HPF (0-3); Squamous Epithelial 0-3 HPF (0-3); WBC/HPF 0-3 HPF (0-3)
[2021-08-04 11:07] LABS: #Basophils 0.1 thou/uL (0.0-0.2); #Eosinphils 0.2 thou/uL (0.0-0.7); #Lymphocytes 1.1 thou/uL (1.20-3.40); #Monocytes 1.5 thou/uL (0.11-0.59); %Basophils 1.2 % (0.0-1.0); %Eosinophils 2.1 % (0.0-10.0); %Lymphocytes 9.1 % (21.0-51.0); %Monocytes 12.5 % (0.0-10.0); %Neutrophils 75.2 % (42.0-75.0); Hemoglobin 12.3 g/dL (14.0-18.0); Mean Corpuscular HGB CONC 33.6 g/dL (32.0-36.0); Mean Corpuscular Hemoglobin 28.4 pg (27.0-31.0); Mean Corpuscular Volume 84.4 fL (78.0-98.0); Mean Platelet Volume 8.7 fL (7.4-10.4); Platelet Count 186 thou/uL (130-400); RBC Distribution Width 13.9 % (11.5-14.5); Red Blood Cell (RBC) Count 4.35 mill/uL (4.70-6.10)
[2021-08-04] MEDS ORDERED: Sodium Chloride 0.9% 100 ML ONE (12:19)
[2021-08-04] MEDS ORDERED: Cefepime 2 GM VIAL ONE (12:19)
[2021-08-04 13:55] LABS: SARS-CoV-2 NAA Rapid Test Not Detected (NotDetected)
[2021-08-04] MEDS ORDERED: HYDROcodone/Acetaminophen 5/325 mg Tablet PO PRN (15:53)
[2021-08-04] MEDS ORDERED: Ondansetron PF 4 MG/2 ML Vial IVP PRN (16:00)
[2021-08-04] MEDS ORDERED: Ondansetron ODT 4 MG TAB SL PRN (16:00)
[2021-08-04 16:28] VITALS: BMI 38.2
[2021-08-04] MEDS ORDERED: Acetaminophen 500 MG TAB PO PRN (17:01)
[2021-08-04] MEDS: cefTRIAXone\\ROCEPHIN 1 GM in Sodium Chloride 0.9% 100 ML IVPB SCH (17:43)
[2021-08-04] MEDS: Azithromycin 500 MG in Sodium Chloride 0.9% 250 ML 250 ML IVPB SCH (18:24)
[2021-08-04] MEDS: Atorvastatin Calcium 40 MG TAB PO SCH (20:54)
[2021-08-04] MEDS: Carvedilol 6.25 MG TAB PO SCH (20:55)
[2021-08-04] MEDS: Enoxaparin Sodium 40 MG/0.4 ML SYRINGE SC SCH (20:56)
[2021-08-05 05:44] LABS: #Basophils 0.1 thou/uL (0.0-0.2); #Eosinphils 0.3 thou/uL (0.0-0.7); #Lymphocytes 0.6 thou/uL (1.20-3.40); #Neutrophils 7.2 thou/uL (1.40-6.50); %Basophils 1.3 % (0.0-1.0); %Eosinophils 3.7 % (0.0-10.0); %Lymphocytes 6.6 % (21.0-51.0); %Monocytes 11.1 % (0.0-10.0); %Neutrophils 77.3 % (42.0-75.0); Hemoglobin 11.5 g/dL (14.0-18.0); Mean Corpuscular HGB CONC 33.2 g/dL (32.0-36.0); Mean Corpuscular Hemoglobin 28.5 pg (27.0-31.0); Mean Corpuscular Volume 85.8 fL (78.0-98.0); Mean Platelet Volume 9.4 fL (7.4-10.4); Platelet Count 159 thou/uL (130-400); Red Blood Cell (RBC) Count 4.03 mill/uL (4.70-6.10); White Blood Cell (WBC) Count 9.3 thou/uL (4.8-10.8)
[2021-08-05 05:56] LABS: Anion Gap 15 mmol/L (10-20); BUN (Urea Nitrogen) 15 mg/dL (8.4-25.7); Calc. Creatinine Clearance 133 mL/min (70-130); Calcium 8.6 mg/dL (7.8-10.44); Carbon Dioxide 22 mmol/L (23-31); Chloride 108 mmol/L (98-107); Glucose 89 mg/dL (80-115); Potassium 4.5 mmol/L (3.5-5.1); Sodium 140 mmol/L (136-145)
[2021-08-05] MEDS ORDERED: Sodium Chloride 0.9% 500 ML IV SCH (08:30)
[2021-08-05] MEDS: Fish Oil 1,000 MG CAP PO SCH (10:12)
[2021-08-05] MEDS: Furosemide 20 MG TAB PO SCH (10:13)
[2021-08-05] MEDS: Aspirin 81 mg Enteric Coated Tablet PO SCH (10:17)
[2021-08-05] MEDS: Lisinopril 5 MG TAB PO SCH (10:20)
[2021-08-05] MEDS: Carvedilol 6.25 MG TAB PO SCH ×2 (10:21→21:29)
[2021-08-05] MEDS: cefTRIAXone\\ROCEPHIN 1 GM in Sodium Chloride 0.9% 100 ML IVPB SCH (16:29)
[2021-08-05] MEDS: Azithromycin 500 MG in Sodium Chloride 0.9% 250 ML 250 ML IVPB SCH (17:51)
[2021-08-05] MEDS: Atorvastatin Calcium 40 MG TAB PO SCH (21:29)
[2021-08-05] MEDS: Enoxaparin Sodium 40 MG/0.4 ML SYRINGE SC SCH (21:29)
[2021-08-06] MEDS: Fish Oil 1,000 MG CAP PO SCH (08:33)
[2021-08-06] MEDS: Furosemide 20 MG TAB PO SCH (08:33)
[2021-08-06] MEDS: Aspirin 81 mg Enteric Coated Tablet PO SCH (08:33)
[2021-08-06] MEDS: Carvedilol 6.25 MG TAB PO SCH ×2 (08:33→21:56)
[2021-08-06] MEDS: Lisinopril 5 MG TAB PO SCH (08:34)
[2021-08-06] MEDS: cefTRIAXone\\ROCEPHIN 1 GM in Sodium Chloride 0.9% 100 ML IVPB SCH (16:58)
[2021-08-06] MEDS ORDERED: Azithromycin 250 MG TAB PO SCH (18:00)
[2021-08-06 18:23] VITALS: BP 101/67; TEMP 99.1
[2021-08-06] MEDS: Enoxaparin Sodium 40 MG/0.4 ML SYRINGE SC SCH (21:56)
[2021-08-06] MEDS: Atorvastatin Calcium 40 MG TAB PO SCH (21:57)
== END 2021-08-06 22:40 | disposition short-term general hospital (02) | DRG 194 ==
LOC: BURERS 10:09 → BURMED 14:30
PROVIDERS: ADMIT Family Medicine; ATTEND Family Medicine
DX: J18.9 Pneumonia, unspecified organism (principal); J90 Pleural effusion, not elsewhere classified; I25.10 Atherosclerotic heart disease of native coronary artery without angina pectoris; I11.0 Hypertensive heart disease with heart failure; I50.9 Heart failure, unspecified; E78.5 Hyperlipidemia, unspecified; Z20.822 Contact with and (suspected) exposure to COVID-19; I25.2 Old myocardial infarction; Z95.1 Presence of aortocoronary bypass graft; Z90.49 Acquired absence of other specified parts of digestive tract; Z98.890 Other specified postprocedural states; Z95.5 Presence of coronary angioplasty implant and graft; Z79.82 Long term (current) use of aspirin; Z79.899 Other long term (current) drug therapy
CPT/HCPCS: 36415; 71045; 74177; 80048; 80053; 81003; 81015; 83605; 85025; 87040; 90471; 90732; 93005; G0009; J0456; J0692; J0696; J1650; J3370; J3490; J7030; J7050; Q9967; U0002

== ENCOUNTER 2021-09-24 09:58 | Outpatient (CLI) | payer MEDICARE | END 2021-09-24 09:59 | disposition home or self-care (01) | LOC: BURRAD 09:58 | PROVIDERS: ATTEND Nurse Practitioner Family | DX: J18.9 Pneumonia, unspecified organism (principal); J90 Pleural effusion, not elsewhere classified | CPT/HCPCS: 71046 ==

== ENCOUNTER 2021-10-25 16:50 | Emergency (ER) | payer MEDICARE ==
[2021-10-25] MEDS ORDERED: Acetaminophen 500 MG TAB ONE (17:38)
[2021-10-25 17:39] LABS: #Basophils 0.1 thou/uL (0.0-0.2); #Eosinphils 0.4 thou/uL (0.0-0.7); #Lymphocytes 0.4 thou/uL (1.20-3.40); #Monocytes 0.7 thou/uL (0.11-0.59); #Neutrophils 7.8 thou/uL (1.40-6.50); %Eosinophils 4.4 % (0.0-10.0); %Lymphocytes 3.8 % (21.0-51.0); %Monocytes 7.3 % (0.0-10.0); %Neutrophils 83.6 % (42.0-75.0); Hemoglobin 15.2 g/dL (14.0-18.0); Mean Corpuscular HGB CONC 32.8 g/dL (32.0-36.0); Mean Corpuscular Hemoglobin 28.2 pg (27.0-31.0); Mean Platelet Volume 10.3 fL (7.4-10.4); Platelet Count 188 thou/uL (130-400); RBC Distribution Width 14.9 % (11.5-14.5); White Blood Cell (WBC) Count 9.4 thou/uL (4.8-10.8)
[2021-10-25 17:48] LABS: Bilirubin Negative (Negative); Blood, Urine Negative (Negative); Clarity Clear (Clear); Glucose, Urine (Dipstick) Negative (Negative); Ketone, Urine Negative (Negative); Leukocyte Negative (Negative); Nitrite Negative (Negative); Protein, Urine (Dipstick) Negative (Neg-Trace); Urobilinogen 0.2 mg/dL (Less than 2); pH, Urine 5.5 (5.0-9.0)
[2021-10-25 17:51] LABS: ALT (SGPT) 27 U/L (8-55); AST (SGOT) 27 U/L (5-34); Albumin 3.8 g/dL (3.4-4.8); Alkaline Phosphatase 113 U/L (40-110); Anion Gap 16 mmol/L (10-20); BUN (Urea Nitrogen) 18 mg/dL (8.4-25.7); Bilirubin, Total 0.9 mg/dL (0.2-1.2); Calc. Creatinine Clearance 0 mL/min (70-130); Calcium 9.6 mg/dL (7.8-10.44); Carbon Dioxide 22 mmol/L (23-31); Chloride 104 mmol/L (98-107); Globulin 4.5 g/dL (2.4-3.5); Glucose 138 mg/dL (80-115); Lipase 11 U/L (8-78); Potassium 4.4 mmol/L (3.5-5.1); Protein, Total 8.3 g/dL (5.8-8.1); Sodium 138 mmol/L (136-145)
[2021-10-25 18:08] LABS: CKMB 0.9 ng/mL (0-6.6)
[2021-10-25] MEDS ORDERED: Aspirin Chewable 81 MG TAB ONE (18:21)
[2021-10-25] MEDS ORDERED: Piperacillin/Tazobactam 4.5 GM VIAL ONE (19:01)
[2021-10-25 19:03] LABS: SARS-CoV-2 NAA Rapid Test Not Detected (NotDetected)
== END 2021-10-25 19:41 | disposition home or self-care (01) ==
LOC: BURERS 16:50
DX: A41.9 Sepsis, unspecified organism (principal); R11.2 Nausea with vomiting, unspecified; R19.7 Diarrhea, unspecified; R79.89 Other specified abnormal findings of blood chemistry; Z20.822 Contact with and (suspected) exposure to COVID-19; I25.10 Atherosclerotic heart disease of native coronary artery without angina pectoris; I11.0 Hypertensive heart disease with heart failure; I50.9 Heart failure, unspecified; Z87.891 Personal history of nicotine dependence; Z79.899 Other long term (current) drug therapy; Z79.82 Long term (current) use of aspirin
CPT/HCPCS: 36415; 51701; 71045; 80053; 81003; 82553; 83605; 83690; 83880; 84484; 85025; 87040; 87086; 93005; 96365; J2543; J3370; U0002

== ENCOUNTER 2022-05-02 14:15 | Emergency (ER) | payer MEDICARE ==
[2022-05-02 14:52] LABS: #Basophils 0.2 thou/uL (0.0-0.2); #Eosinphils 0.3 thou/uL (0.0-0.7); #Lymphocytes 1.2 thou/uL (1.20-3.40); #Monocytes 0.9 thou/uL (0.11-0.59); #Neutrophils 13.9 thou/uL (1.40-6.50); %Basophils 1.2 % (0.0-1.0); %Eosinophils 2.1 % (0.0-10.0); %Lymphocytes 7.2 % (21.0-51.0); %Monocytes 5.4 % (0.0-10.0); %Neutrophils 84.1 % (42.0-75.0); Mean Corpuscular HGB CONC 33.6 g/dL (32.0-36.0); Mean Corpuscular Hemoglobin 30.7 pg (27.0-31.0); Mean Corpuscular Volume 91.4 fL (78.0-98.0); Mean Platelet Volume 9.7 fL (7.4-10.4); Platelet Count 141 thou/uL (130-400); RBC Distribution Width 14.8 % (11.5-14.5); Red Blood Cell (RBC) Count 4.58 mill/uL (4.70-6.10); White Blood Cell (WBC) Count 16.5 thou/uL (4.8-10.8)
[2022-05-02 15:07] LABS: ALT (SGPT) 36 U/L (8-55); AST (SGOT) 21 U/L (5-34); Albumin 2.9 g/dL (3.4-4.8); Alkaline Phosphatase 84 U/L (40-110); Anion Gap 14 mmol/L (10-20); BUN (Urea Nitrogen) 37 mg/dL (8.4-25.7); Bilirubin, Total 0.8 mg/dL (0.2-1.2); Calc. Creatinine Clearance 0 mL/min (70-130); Calcium 7.4 mg/dL (7.8-10.44); Carbon Dioxide 20 mmol/L (23-31); Chloride 108 mmol/L (98-107); Globulin 2.9 g/dL (2.4-3.5); Glucose 102 mg/dL (83-110); Potassium 4.2 mmol/L (3.5-5.1); Protein, Total 5.8 g/dL (5.8-8.1); Sodium 138 mmol/L (136-145)
[2022-05-02 18:25] LABS: Bilirubin Negative (Negative); Blood, Urine Negative (Negative); Clarity Clear (Clear); Glucose, Urine (Dipstick) Negative (Negative); Ketone, Urine Negative (Negative); Leukocyte Negative (Negative); Nitrite Negative (Negative); Protein, Urine (Dipstick) Negative (Neg-Trace); Urobilinogen 0.2 mg/dL (Less than 2); pH, Urine 5.5 (5.0-9.0)
[2022-05-02 18:58] LABS: CKMB 1.4 ng/mL (0-6.6)
[2022-05-02 23:18] LABS: Troponin I 0.029 ng/mL (< 0.028)
== END 2022-05-02 20:05 | disposition short-term general hospital (02) ==
LOC: BURERS 14:15
DX: R53.1 Weakness (principal); R94.31 Abnormal electrocardiogram [ECG] [EKG]; I11.0 Hypertensive heart disease with heart failure; I50.9 Heart failure, unspecified; I25.10 Atherosclerotic heart disease of native coronary artery without angina pectoris; I25.2 Old myocardial infarction; E78.5 Hyperlipidemia, unspecified; E78.00 Pure hypercholesterolemia, unspecified; Z87.891 Personal history of nicotine dependence; Z79.82 Long term (current) use of aspirin; Z79.899 Other long term (current) drug therapy
CPT/HCPCS: 71045; 80053; 81003; 82553; 83605; 83880; 84484; 85025; 93005

== ENCOUNTER 2023-08-27 20:47 | Emergency (ER) | payer MEDICARE ==
[2023-08-27 21:17] LABS: #Basophils 0.2 thou/uL (0.0-0.2); #Eosinphils 0.4 thou/uL (0.0-0.7); #Lymphocytes 0.9 thou/uL (1.20-3.40); #Monocytes 0.6 thou/uL (0.11-0.59); #Neutrophils 6.4 thou/uL (1.40-6.50); %Eosinophils 4.8 % (0.0-10.0); %Lymphocytes 10.4 % (21.0-51.0); %Monocytes 6.8 % (0.0-10.0); Hemoglobin 12.5 g/dL (14.0-18.0); Mean Corpuscular HGB CONC 33.7 g/dL (32.0-36.0); Mean Corpuscular Hemoglobin 31.3 pg (27.0-31.0); Mean Platelet Volume 9.4 fL (7.4-10.4); Platelet Count 168 10x3/uL (130-400); Red Blood Cell (RBC) Count 3.98 mill/uL (4.70-6.10); White Blood Cell (WBC) Count 8.4 10x3/uL (4.8-10.8)
[2023-08-27 21:30] LABS: Troponin I 0.034 ng/mL (< 0.028)
[2023-08-27 21:32] LABS: ALT (SGPT) 21 U/L (8-55); AST (SGOT) 24 U/L (5-34); Albumin 3.5 g/dL (3.4-4.8); Alkaline Phosphatase 87 U/L (40-110); Anion Gap 16 mmol/L (10-20); BUN (Urea Nitrogen) 27 mg/dL (8.4-25.7); Bilirubin, Total 0.8 mg/dL (0.2-1.2); CK (CPK) 35 U/L (30-200); Calc. Creatinine Clearance 0 mL/min (70-130); Calcium 8.5 mg/dL (7.8-10.44); Carbon Dioxide 20 mmol/L (23-31); Chloride 105 mmol/L (98-107); Estimated GFR 85; Globulin 3.4 g/dL (2.4-3.5); Glucose 161 mg/dL (83-110); Magnesium 1.7 mg/dL (1.6-2.6); Potassium 4.1 mmol/L (3.5-5.1); Protein, Total 6.9 g/dL (5.8-8.1); Sodium 137 mmol/L (136-145)
== END 2023-08-27 22:54 | disposition short-term general hospital (02) ==
LOC: BURERS 20:47
DX: S00.93XA Contusion of unspecified part of head, initial encounter (principal); R53.1 Weakness; R77.8 Other specified abnormalities of plasma proteins; I25.2 Old myocardial infarction; I11.0 Hypertensive heart disease with heart failure; I50.9 Heart failure, unspecified; E78.00 Pure hypercholesterolemia, unspecified; Z87.891 Personal history of nicotine dependence; Z79.899 Other long term (current) drug therapy; Z79.82 Long term (current) use of aspirin; X58.XXXA Exposure to other specified factors, initial encounter
CPT/HCPCS: 70450; 71045; 80053; 82550; 83605; 83735; 83880; 84443; 84484; 85025; 93005; 94760; 96360